=== PATIENT | female | born 1950 | race Caucasian/White ===

== ENCOUNTER → 2020-03-06 10:21 | Outpatient (REF) | payer MEDICARE, SELFPAY ==
--- NOTE | 2020-03-06 10:30 | CA_ITS ---
Transthoracic Echocardiogram Patient (Last, First, Middle): Nikky Lawrence, Gender: Female Date of : 1950 Age: 69 Procedure Date: 03/06/2020 Procedure Type: Transthoracic Echocardiogram Location: OP Height: 170.18 cm Weight: 80. kg BSA: 1.92 m2 Heart Rate: bpm BP: 126 / 60 mmHg Impregnator Electrolytic Capacitors: Referring MD: Martin Betancourt MD Flight Mechanic: Tereso Pacheco MD Symptoms: Z95.3 XENOGENIC HEART VALVE,Z95.828 VAS IMPLANTS GRAFTS Z95. Study Quality: Fair ECG Rhythm: Sinus Conclusions: - 1. Normal LV systolic function with pseudonormal filling pattern 2. Normally functioning bioprosthetic aortic valve with mean gradient of 10 mm Hg and mild aortic regurgitation 3. Normal RV systolic pressure 4. No pericardial effusion Findings Left Ventricle Normal left ventricular size and systolic function. There is mildly increased left ventricular wall thickness. The visually estimated ejection fraction is between 60-65%. Spectral Doppler is indicative of a pseudonormal filling pattern. E/E prime ratio is between 8 and 15 consistent with indeterminate filling pressures. Right Ventricle Normal right ventricular cavity size and systolic function. There is a pacemaker wire seen in the right ventricle. Atria The left atrium is likely dilated. There is no evidence of interatrial shunt. The right atrium is normal in size. A pacemaker wire is identified in the right atrium. Aortic Valve A bioprosthetic aortic valve is present. The prosthetic aortic valve appears to be functioning normally. The mean gradient is 10 mmHg. There is mild aortic valve regurgitation. Mitral Valve There is mild anterior and posterior mitral leaflet thickening. There is trace mitral valve regurgitation. There is no mitral valve stenosis. Pulmonic Valve The pulmonic valve was not well visualized. Tricuspid Valve Likely normal tricuspid valve structure and function. There is mild tricuspid valve regurgitation. The right ventricular systolic pressure is normal. The right ventricular systolic pressure is 20 mmHg. There is no evidence of pulmonary hypertension. Great Vessels All visible segments of the aorta are normal in size. The pulmonary artery was not well visualized. Venous The inferior vena cava is normal in size and collapses greater than 50% with inspiration. Pericardium/Pleural There is no evidence of pericardial effusion. Prior Study Comparison No significant change compared to prior study dated: 05/30/2019. Measurements 2D Linear Measurements IVSd: 1.33 0.6-0.9/0.6-1.0 cm LVIDd: 3.85 3.9-5.3/4.2-5.9 cm LVIDd Index: 2.01 2.4-3.2/2.2-3.1 cm/m2 LVIDs: 2.33 2.0-3.6 cm LVPWd: 1.37 0.7-1.1 cm Ao Root: 3.50 2.1-3.5 cm LA Diam: 4.00 2.7-3.8/3.0-4.0 cm LAIDs Index: 2.08 1.5-2.3 cm/m2 LV Mass: 232.90 67-162/88-224 g LV Mass Index: 121.30 43-95/49-115 g/m2 LVOT Diam: 2.00 3.0+(-)1.3 cm Mitral Valve MV VTI: 0.30 MV Pk Darren: 0.92 MV Mn Darren: 0.53 MV Pk Grad: 3.00 MV Mn Grad: 1.00 MV Pk E: 0.95 MV PK A: 0.63 MV Decel Time: 253.00 E/A: 1.50 E'Lateral: 9.28 E'Medial: 7.16 E/E' Med: 13.30 E/E' Lat: 10.20 PHT: 74.00 MVA PHT: 2.97 MVA Continuity: 2.53 Decel [place]: 3.75 Aortic Valve AoV Pk Darren: 2.19 AoV Mn Darren: 1.49 AoV VTI: 0.57 AoV Pk Grad: 19.00 Aov Mn Grad: 10.00 LAISHA Cont.VTI: 1.34 LVOT LVOT Pk Darren: 0.82 LVOT Mn Darren: 0.60 LVOT VTI: 0.24 LVOT Pk Grad: 3.00 LVOT Mn Grad: 2.00 LVOT Diam: 2.00 LVOT Area: 3.14 Diastolic Function MV Pk E: 0.95 MV Pk A: 0.63 E/A: 1.50 E'Medial: 7.16 E/E' Med: 13.30 E' Laterial: 9.28 E/E' Lat: 10.20 Tricuspid Valve TR Pk Darren: 2.04 TR Pk Grad: 17.00 RA Press: 3.00 RVSP: 20.00 Great Vessels Aorta Ao Root-2D: 3.50 2.0-3.7 cm Ao Asc: 2.90 2.1-3.4 cm Pulmonary Valve PV Pk Darren: 1.15 Peak PV Grad: 5.00 Updated in Other Vendor System with Status of Final Tereso Pacheco MD electronically signed on 03/06/2020 2:23:14 PM with status of Final
== END ==
LOC: HO.CARD 10:21
PROVIDERS: Visit Provider Internal Medicine
DX: Z95.3 Presence of xenogenic heart valve (principal); Z95.828 Presence of other vascular implants and grafts; Z95.1 Presence of aortocoronary bypass graft
CPT/HCPCS: 93306

== ENCOUNTER → 2020-03-13 11:11 | Outpatient (BNVA) | payer MEDICARE, SELFPAY | PROVIDERS: PCP Physician Assistant; Visit Provider Internal Medicine Pulmonary Disease | DX: J44.9 Chronic obstructive pulmonary disease, unspecified (principal); R06.00 Dyspnea, unspecified; Z79.899 Other long term (current) drug therapy; Z87.891 Personal history of nicotine dependence | CPT/HCPCS: 99212 ==

== ENCOUNTER → 2020-05-06 13:45 | Outpatient (BNVA) | payer MEDICARE, SELFPAY | PROVIDERS: PCP Physician Assistant; Visit Provider Internal Medicine | DX: Z45.018 Encounter for adjustment and management of other part of cardiac pacemaker (principal); I48.0 Paroxysmal atrial fibrillation; Z95.3 Presence of xenogenic heart valve; Z98.890 Other specified postprocedural states; Z86.79 Personal history of other diseases of the circulatory system; Z95.1 Presence of aortocoronary bypass graft | CPT/HCPCS: 99212 ==

== ENCOUNTER → 2020-09-19 10:24 | Outpatient (BNVA) | payer MEDICARE, SELFPAY | PROVIDERS: PCP Physician Assistant; Visit Provider Internal Medicine Pulmonary Disease | DX: J44.9 Chronic obstructive pulmonary disease, unspecified (principal); R06.00 Dyspnea, unspecified | CPT/HCPCS: 99212 ==

== ENCOUNTER → 2021-03-03 12:38 | Outpatient (BNVA) | payer MEDICARE, SELFPAY | PROVIDERS: PCP Physician Assistant; Referring Provider Physician Assistant; Visit Provider Internal Medicine | DX: Z45.018 Encounter for adjustment and management of other part of cardiac pacemaker (principal); I48.0 Paroxysmal atrial fibrillation; Z95.3 Presence of xenogenic heart valve; Z98.890 Other specified postprocedural states; Z86.79 Personal history of other diseases of the circulatory system; Z95.1 Presence of aortocoronary bypass graft | CPT/HCPCS: 93005; 99212 ==

== ENCOUNTER 2021-04-18 12:42 | Outpatient (REF) | payer MEDICARE, SELFPAY ==
--- NOTE | ~2021-04-18 | MM_ITS ---
EXAMINATION: BONE DENSITOMETRY CLINICAL INDICATION: Asymptomatic menopausal state. COMPARISON: Baseline BD dated 10/24/2009. TECHNIQUE: Using a [employer] DXA System (software version: 13.1) manufactured by [employer], dual-energy x-ray absorptiometry was performed of the lumbar spine and left hip. The images are of good technical quality. Summary results are attached. FINDINGS: AP SPINE L1-L4: Current: BMD 1.034 g/cm2, Z-score 0.1, T-score -1.2, osteopenia, 2.4% decrease from baseline (<5% change is not significant). Baseline: BMD 1.059 g/cm2. LEFT FEMUR, NECK: Current: BMD 0.718 g/cm2, Z-score -0.8, T-score -2.3, osteopenia. Baseline: BMD 0.816 g/cm2. LEFT FEMUR, TOTAL: Current: BMD 0.772 g/cm2, Z-score -0.6, T-score -1.9, osteopenia, 5.6% decrease from baseline (<5% change is not significant). Baseline: BMD 0.818 g/cm2. IDENTIFIED RISK FACTORS: Menopause. HISTORY OF FRACTURE: None listed. MEDICATIONS: Calcium supplements or multivitamin, vitamin D. MM/XR DEXA axial skeleton IMPRESSION: 1. DIAGNOSIS: Osteopenia based on the lowest T-score value of -2.3 in the femoral neck applying World Health Organization criteria. 2. 10-YEAR FRACTURE RISK PREDICTION, FRAX: Major osteoporotic fracture (clinical spine, forearm, hip or shoulder) 14.4%. Hip fracture 3.6%. 3. Treatment Recommendations: NOF guidelines recommend consideration for treatment in postmenopausal women and men age 50 and older presenting with the following: -A hip or vertebral (clinical or morphometric) fracture. -T-score less than or equal to -2.5 at the femoral neck or spine after appropriate evaluation to exclude secondary causes. -Low bone mass at the hip or spine and a 10-year fracture probability by FRAX of greater than or equal to 3% for hip fracture or greater than or equal to 20% for major osteoporotic fracture based on the [place] adapted WHO algorithm. 4. Other Recommendations: All treatment decisions require clinical judgment and consideration of individual patient factors, including patient preferences, comorbidities, previous drug use, risk factors not captured in the FRAX model (e.g. frailty, falls, vitamin D deficiency, increased bone turnover, interval significant decline in bone density) and possible under or overestimation of fracture risk by FRAX. Additional medical evaluation for secondary cause of low bone mineral density may be appropriate. FUTURE SCAN RECOMMENDATION: People with diagnosed cases of osteoporosis or at high risk for fracture should have regular bone mineral density tests. For patients eligible for Medicare, routine testing is allowed once every 2 years. The testing frequency can be increased to one year for patients who have rapidly progressing disease, those who are receiving or discontinuing medical therapy to restore bone mass, or have additional risk factors.
== END 2021-04-18 12:43 | disposition home or self-care (01) ==
LOC: HO.MAMMO 12:42
PROVIDERS: PCP Physician Assistant; Visit Provider Physician Assistant
DX: Z13.820 Encounter for screening for osteoporosis (principal); M85.80 Other specified disorders of bone density and structure, unspecified site; Z78.0 Asymptomatic menopausal state; Z79.899 Other long term (current) drug therapy; J44.9 Chronic obstructive pulmonary disease, unspecified
CPT/HCPCS: 77080; 99212

== ENCOUNTER → 2021-10-06 10:37 | Outpatient (BNVA) | payer MEDICARE, SELFPAY | PROVIDERS: PCP Physician Assistant; Referring Provider Physician Assistant; Visit Provider Internal Medicine | DX: I51.81 Takotsubo syndrome (principal); I48.0 Paroxysmal atrial fibrillation; J44.9 Chronic obstructive pulmonary disease, unspecified; Z95.3 Presence of xenogenic heart valve; Z95.1 Presence of aortocoronary bypass graft; Z98.890 Other specified postprocedural states | CPT/HCPCS: 99212 ==

== ENCOUNTER → 2021-10-27 11:00 | Outpatient (BNVA) | payer MEDICARE, SELFPAY | PROVIDERS: PCP Physician Assistant; Visit Provider Internal Medicine Pulmonary Disease | DX: J44.9 Chronic obstructive pulmonary disease, unspecified (principal); Z79.899 Other long term (current) drug therapy | CPT/HCPCS: 99212 ==

== ENCOUNTER → 2021-11-24 10:12 | Outpatient (REF) | payer MEDICARE, SELFPAY ==
--- NOTE | 2021-11-24 10:14 | CA_ITS ---
Transthoracic Echocardiogram Patient (Last, First, Middle): Nikky Lawrence, Gender: Female Date of : 1950 Age: 71 Procedure Date: 11/24/2021 Procedure Type: Transthoracic Echocardiogram Location: OP Height: 170.18 cm Weight: 77.11 kg BSA: 1.89 m2 Heart Rate: bpm BP: 148 / 84 mmHg Telephoto Installer: JAMISON Referring MD: Martin Betancourt MD Symptoms: I51.81 - Takotsubo syndrome Study Quality: Adequate ECG Rhythm: Sinus Conclusions: - The left ventricular systolic function is normal. The calculated ejection fraction is 67% by biplane method. - A bioprosthetic aortic valve is present. The prosthetic aortic valve appears to be functioning normally. - There is moderate mitral annular calcification. Findings Left Ventricle Normal left ventricular cavity size. There is moderately increased left ventricular wall thickness. The left ventricular systolic function is normal. The calculated ejection fraction is 67% by biplane method. There is no evidence of regional wall motion abnormalities. E/E prime ratio is >15, consistent with elevated filling pressures. Evidence suggests grade II (moderate) diastolic dysfunction. Right Ventricle Normal right ventricular cavity size and systolic function. Atria The left atrium is normal in size. The right atrium is normal in size. A pacemaker wire is identified in the right atrium. Aortic Valve A bioprosthetic aortic valve is present. The prosthetic aortic valve appears to be functioning normally. The mean gradient is 11 mmHg. Trace to mild regurgitation. Suspect valvular. Acceleration time 59ms. Mitral Valve There is moderate mitral annular calcification. There is trace mitral valve regurgitation. There is no mitral valve stenosis. Pulmonic Valve The pulmonic valve is likely normal. Tricuspid Valve Normal tricuspid valve structure. There is mild tricuspid valve regurgitation. There is no evidence of pulmonary hypertension. Great Vessels The aorta was not well visualized. Venous The inferior vena cava is normal in size and collapses greater than 50% with inspiration. Pericardium/Pleural There is no evidence of pericardial effusion. Prior Study Comparison No significant change compared to prior study dated: 03/06/2020. Measurements 2D Linear Measurements IVSd: 1.44 0.6-0.9/0.6-1.0 cm LVIDd: 3.88 3.9-5.3/4.2-5.9 cm LVIDd Index: 2.05 2.4-3.2/2.2-3.1 cm/m2 LVIDs: 2.30 2.0-3.6 cm LVPWd: 1.29 0.7-1.1 cm LA Diam: 3.40 2.7-3.8/3.0-4.0 cm LAIDs Index: 1.80 1.5-2.3 cm/m2 LV Mass: 239.61 67-162/88-224 g LV Mass Index: 126.78 43-95/49-115 g/m2 LVOT Diam: 2.00 3.0+(-)1.3 cm 2D Systolic Function EF 4C: 67.50 >55% EF 2C: 66.10 >55% EF BiP: 67.30 >55% Mitral Valve MV Pk E: 1.06 MV PK A: 0.68 MV Decel Time: 169.00 E/A: 1.60 E'Lateral: 8.48 E'Medial: 6.08 E/E' Med: 17.40 E/E' Lat: 12.50 PHT: 50.00 MVA PHT: 4.40 Decel [place]: 6.26 Aortic Valve AoV Pk Darren: 2.30 AoV Mn Darren: 1.54 AoV VTI: 0.59 AoV Pk Grad: 21.00 Aov Mn Grad: 11.00 LAISHA Cont.VTI: 1.63 LVOT LVOT Pk Darren: 1.16 LVOT Mn Darren: 0.72 LVOT VTI: 0.30 LVOT Pk Grad: 5.00 LVOT Mn Grad: 3.00 LVOT Diam: 2.00 LVOT Area: 3.14 Diastolic Function MV Pk E: 1.06 MV Pk A: 0.68 E/A: 1.60 E'Medial: 6.08 E/E' Med: 17.40 E' Laterial: 8.48 E/E' Lat: 12.50 Right Ventricle TAPSE (mm): 21.60 TVS' Darren: 8.40 Tricuspid Valve TR Pk Darren: 2.61 TR Pk Grad: 27.00 RA Press: 3.00 RVSP: 30.00 Great Vessels Aorta Ao Asc: 2.50 2.1-3.4 cm Updated in Other Vendor System with Status of Final Martin Betancourt MD electronically signed on 11/24/2021 1:04:22 PM with status of Final
== END ==
LOC: HO.CARD 10:12
PROVIDERS: Visit Provider Internal Medicine
DX: I51.81 Takotsubo syndrome (principal)
CPT/HCPCS: 93306

== ENCOUNTER → 2022-01-05 13:27 | Outpatient (BNVA) | payer MEDICARE, SELFPAY | PROVIDERS: PCP Physician Assistant; Referring Provider Physician Assistant; Visit Provider Internal Medicine | DX: Z45.018 Encounter for adjustment and management of other part of cardiac pacemaker (principal); I51.81 Takotsubo syndrome; I48.0 Paroxysmal atrial fibrillation; Z95.3 Presence of xenogenic heart valve; Z95.1 Presence of aortocoronary bypass graft; Z98.890 Other specified postprocedural states; Z86.79 Personal history of other diseases of the circulatory system | CPT/HCPCS: 93005; 99212 ==

== ENCOUNTER → 2022-05-05 10:22 | Outpatient (BNVA) | payer MEDICARE, SELFPAY | PROVIDERS: PCP Physician Assistant; Visit Provider Internal Medicine Pulmonary Disease | DX: J44.9 Chronic obstructive pulmonary disease, unspecified (principal) | CPT/HCPCS: 99212 ==

== ENCOUNTER → 2022-09-22 23:59 | Outpatient (BNV) | payer MEDICARE, SELFPAY ==
--- NOTE | 2022-09-27 10:44 | MHC.OFFVIS ---
Intake Intake Visit Reasons: Remote device check-Biotronik Allergies No Known Allergies [No Known Allergies*] Allergy (Verified 06/01/22 12:13) PFSH Medical History COPD (chronic obstructive pulmonary disease) PAF (paroxysmal atrial fibrillation) Surgical History History of cataract extraction History of heart surgery Status post aortic valve replacement with bioprosthetic valve Status post aorto-coronary artery bypass graft Status post ascending aortic aneurysm repair Family History Father Myocardial infarction Mother No problems noted. 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 Overall normal device function. [id number] Cardiac Device Interrogation, pacemaker Procedure code (CPT) selection complete Assessment & Plan Assessment & Plan (1) PAF (paroxysmal atrial fibrillation): Code(s): I48.0 - Paroxysmal atrial fibrillation Coding Level of Care Code Procedure Only Diagnoses PAF (paroxysmal atrial fibrillation) I48.0 CPT Codes Cardiac Device Check - Cardiac Device 12: [id number] Cardiac Device Interrogation, pacemaker ([id number])
== END ==
PROVIDERS: PCP Physician Assistant; Visit Provider Internal Medicine
DX: I48.0 Paroxysmal atrial fibrillation (principal); Z95.0 Presence of cardiac pacemaker
CPT/HCPCS: 93294

== ENCOUNTER 2022-11-10 11:25 | Outpatient (AMB) | payer MEDICARE, SELFPAY ==
[2022-11-10 11:32] VITALS: BP 146/94; PULSE 67; O2SAT 97; BMI 27.3
--- NOTE | 2022-11-10 11:32 | A.OFFVIS_ITS ---
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 Patient denies any recent exacerbations. She continues to use Trelegy and albuterol MDI with good control of her symptoms. [facility] Medical History COPD (chronic obstructive pulmonary disease) PAF (paroxysmal atrial fibrillation) Surgical History History of cataract extraction History of heart surgery Status post aortic valve replacement with bioprosthetic valve Status post aorto-coronary artery bypass graft Status post ascending aortic aneurysm repair Family History Father Myocardial infarction Mother No problems noted. Brother CAD (coronary artery disease) S/P CABG x 4 Social History Household Members: None Housing: House Alcohol intake: never Patient Tobacco Use Status: Former Tobacco user Years Smoked: 40 e-Cigarette/Vaping Use: Never Used Second Hand Smoke Exposure: No service: No Current occupational status: retired Cognitive needs: No Hearing needs: No Vision needs: Yes (glasses) Review of Systems Const Denies daytime sleepiness, Denies excessive sweating, Denies fatigue, Denies fever(s), Denies lethargy, Denies malaise, Denies night sweats, Denies snoring and Denies weight loss Eyes Denies blurry vision and Denies itchy eyes ENT Denies nasal congestion, Denies post nasal drip, Denies sinus pain, Denies sinus pressure and Denies other ( Thrush) Card Denies chest pain, Denies pedal edema, Denies dyspnea, Denies orthopnea and Denies paroxysmal nocturnal dyspnea Resp Denies cough, Denies hemoptysis, Denies excessive phlegm production, Denies dyspnea, Denies snoring and Denies wheezing GI Denies abdominal pain and Denies heartburn Musc Denies myalgias, Denies arthralgias and Denies joint swelling Skin/Breast Denies rash Neuro Denies memory loss and Denies seizure-like activity Psych Denies abnormal sleep pattern, Denies anxiety and Denies memory loss Endo Denies excessive sweating, Denies fatigue and Denies heat intolerance Schuyler/Lymph Denies easy bruising Aller/Immun Denies itchy eyes, Denies seasonal rhinorrhea and Denies wheezing Physical Exam Vital Signs: Last Vital Signs Pulse 67 11/10/22 11:32 BP 146/94 H 11/10/22 11:32 Pulse Ox 97 11/10/22 11:32 Oxygen Delivery Method Room Air 11/10/22 11:32 BMI result Body Mass Index 27.3 Const General: no acute distress and alert Nutritional Appearance: not obese Orientation/consciousness: Other orientation findings ( oriented) HEENT Head: Yes atraumatic Eyes General: appearance normal, both eyes and all related structures Sclerae: sclerae normal EOM: EOMs intact bilaterally Neck Neck: Yes supple Lymphatic: no lymphadenopathy noted Resp Effort & Inspection: normal respiratory effort and no use of accessory muscles Auscultation: clear to auscultation bilaterally Cardio Rate: regular rate Rhythm: regular rhythm Heart sounds: no gallops, no murmurs and no rubs Skin General skin exam: other ( warm) Extrem General: No clubbing, No cyanosis and No edema Office Procedures Nebulizer Treatment Nebulizer Treatment [id number] RX initial, or Nebulizer Subsequent Treatment Office Meds ipratropium 0.5 mg-albuterol 3 mg (2.5 mg base)/3 mL nebulization soln Performing Provider: Gomez Pizano MD Performing Location: [facility] [place] [facility] Administered by: Kelly Dinero LPN on 11/10/22 12:04 Dose Route Admin Location Dispensed Lot Number Expiration Date NDC [employer] 3 mL inhalation 3 mL [id number] 02/08/24 8743-7851-22 [employer]PH[employer] KIKE Assessment & Plan Assessment & Plan (1) Moderate COPD (chronic obstructive pulmonary disease): Code(s): J44.9 - Chronic obstructive pulmonary disease, unspecified Plan: Well controlled on current regimen of Trelegy and albuterol MDI. Continue current regimen. Will obtain full PFT. (2) Screening for lung cancer: Code(s): Z12.2 - Encounter for screening for malignant neoplasm of respiratory organs Plan: Will proceed with lung cancer screening. Orders: Orders AMB Nebulizer Treatment Today J44.9 - Chronic obstructive pulmonary disease, unspecified CT lung screening Today Z12.2 - Encounter for screening for malignant neoplasm of respiratory organs Coding Level of Care Code Est Pt Level 4 (01492) Diagnoses Moderate COPD (chronic obstructive pulmonary disease) J44.9 Screening for lung cancer Z12.2 CPT Codes Nebulizer Treatment - Nebulizer Treatment, initial or subsequent: 74162- Nebulizer/MDI RX initial, or Nebulizer Subsequent Treatment ([id number])
== END 2022-11-10 15:29 | disposition home or self-care (01) ==
PROVIDERS: PCP Physician Assistant; Visit Provider Internal Medicine Pulmonary Disease
DX: J44.9 Chronic obstructive pulmonary disease, unspecified (principal); Z12.2 Encounter for screening for malignant neoplasm of respiratory organs
CPT/HCPCS: 99214

== ENCOUNTER → 2022-11-10 11:25 | Outpatient (BNVA) | payer MEDICARE, SELFPAY | PROVIDERS: Visit Provider Internal Medicine Pulmonary Disease | DX: J44.9 Chronic obstructive pulmonary disease, unspecified (principal); Z79.899 Other long term (current) drug therapy | CPT/HCPCS: 94640; 99212 ==

== ENCOUNTER 2022-12-21 10:28 | Outpatient (REF) | payer MEDICARE, SELFPAY ==
--- NOTE | ~2022-12-21 | CT_ITS ---
EXAMINATION: CT CHEST SCREENING CLINICAL INFORMATION: Former smoker with 40 pack-year history, quit 8 years ago. COMPARISON: Previous CTs, most recent, 07/12/2019. TECHNIQUE: Multidetector volumetric CT imaging of the chest is performed without contrast using low dose technique. Additional 2D coronal and sagittal reformatted images and axial 3D maximum intensity projection (MIP) images are generated on the CT workstation. This CT examination was performed using dose optimization techniques as appropriate, variously including the following: *Automated exposure control *Adjustment of mA and/or kV according to patient size (this includes techniques or standardized protocols for targeted exams where dose is matched to indication/reason for exam; i.e. 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 Unchanged mild elevation right hemidiaphragm. AIRWAYS AND LUNGS: Trachea and bronchi are patent centrilobular emphysema. Scattered atelectasis. 4 mm subpleural left upper lobe nodule, 6:121. Multiple small bilateral pulmonary nodules sited on previous study have resolved or are less conspicuous. Persistent nodules as follows: RLL: 2 mm, 6:186, previously measured 4 mm. MARY: No change 4 mm subpleural, 6:121. MEDIASTINUM: Mildly heterogeneous nonenlarged thyroid with left calcification. Nonenlarged heart. No pericardial effusion. Pacer and aortic valve replacement. Nonaneurysmal aorta with atherosclerotic calcifications. Nonenlarged pulmonary arteries. CORONARY ARTERY CALCIFICATION: Moderate to moderately severe. PLEURA: There is no pleural effusion. No pleural mass or thickening. AXILLA: No lymphadenopathy. UPPER ABDOMEN: Pancreatic calcifications. OSSEOUS STRUCTURES: Degenerative changes. No suspicious osseous lesions. Median sternotomy wires. CT/CT lung screening IMPRESSION: Interval resolution of previous small pulmonary nodules and stable pulmonary nodules, none larger than 4 mm. ASSESSMENT: Lung-RADS category 2: Benign RECOMMENDATION: Routine annual low-dose CT screening in 12 months.
--- NOTE | 2022-12-21 10:30 | CA_ITS ---
Transthoracic Echocardiogram Patient (Last, First, Middle): Nikky Lawrence, Gender: Female Date of : 1950 Age: 72 Procedure Date: 12/21/2022 Procedure Type: Transthoracic Echocardiogram Location: OP Height: 167.64 cm Weight: 78.02 kg BSA: 1.88 m2 Heart Rate: bpm BP: 115 / 75 mmHg Barman: JAMISON/KAREN Referring MD: Martin Betancourt MD Symptoms: Z95.3 - Presence of xenogenic heart valve Study Quality: Fair ECG Rhythm: Sinus Conclusions: - The left ventricular systolic function is normal. The calculated ejection fraction is 64% by biplane method. - A bioprosthetic aortic valve is present. The prosthetic aortic valve appears to be functioning normally. Findings Left Ventricle Normal left ventricular cavity size. The left ventricular systolic function is normal. The calculated ejection fraction is 64% by biplane method. There is no evidence of regional wall motion abnormalities. Diastolic function is normal for age. There is moderate septal and moderate basal asymmetric hypertrophy. LV peak GLS -18.2%. Right Ventricle Normal right ventricular cavity size and systolic function. Atria Both atria are normal in size. Aortic Valve A bioprosthetic aortic valve is present. The prosthetic aortic valve appears to be functioning normally. The mean gradient is 12 mmHg. There is trace (trivial) aortic valve regurgitation. Trace to mild likely valvular regurgitation. Mitral Valve There is mild mitral annular calcification. There is trace mitral valve regurgitation. There is no mitral valve stenosis. Pulmonic Valve The pulmonic valve is likely normal. Tricuspid Valve Normal tricuspid valve structure. There is trace tricuspid valve regurgitation. There is no evidence of pulmonary hypertension. Great Vessels The asc aorta is normal in size. Venous The inferior vena cava is normal in size and collapses greater than 50% with inspiration. Pericardium/Pleural There is no evidence of pericardial effusion. Prior Study Comparison No significant change compared to prior study dated: 11/24/2021. Measurements 2D Linear Measurements IVSd: 1.34 0.6-0.9/0.6-1.0 cm LVIDd: 4.53 3.9-5.3/4.2-5.9 cm LVIDd Index: 2.41 2.4-3.2/2.2-3.1 cm/m2 LVIDs: 2.87 2.0-3.6 cm LVPWd: 0.91 0.7-1.1 cm LA Diam: 3.80 2.7-3.8/3.0-4.0 cm LAIDs Index: 2.02 1.5-2.3 cm/m2 LV Mass: 227.74 67-162/88-224 g LV Mass Index: 121.14 43-95/49-115 g/m2 LVOT Diam: 2.00 3.0+(-)1.3 cm 2D Systolic Function EF 4C: 63.60 >55% EF 2C: 65.00 >55% EF BiP: 64.10 >55% Mitral Valve MV VTI: 0.44 MV Pk Darren: 1.27 MV Mn Darren: 0.78 MV Pk Grad: 6.00 MV Mn Grad: 3.00 MV Pk E: 1.03 MV PK A: 0.88 MV Decel Time: 213.00 E/A: 1.20 E'Lateral: 10.00 E'Medial: 8.49 E/E' Med: 12.10 E/E' Lat: 10.30 PHT: 62.00 MVA PHT: 3.55 MVA Continuity: 1.52 Decel [place]: 4.83 Aortic Valve AoV Pk Darren: 2.36 AoV Mn Darren: 1.62 AoV VTI: 0.61 AoV Pk Grad: 22.00 Aov Mn Grad: 12.00 LAISHA Cont.VTI: 1.09 LVOT LVOT Pk Darren: 0.77 LVOT Mn Darren: 0.56 LVOT VTI: 0.21 LVOT Pk Grad: 2.00 LVOT Mn Grad: 1.00 LVOT Diam: 2.00 LVOT Area: 3.14 Diastolic Function MV Pk E: 1.03 MV Pk A: 0.88 E/A: 1.20 E'Medial: 8.49 E/E' Med: 12.10 E' Laterial: 10.00 E/E' Lat: 10.30 Right Ventricle TAPSE (mm): 20.40 TVS' Darren: 10.60 Tricuspid Valve TR Pk Darren: 1.97 TR Pk Grad: 16.00 RA Press: 3.00 RVSP: 19.00 Great Vessels Aorta Sinus of Valsalva: 3.34 2.0-3.5 cm Ao Asc: 3.20 2.1-3.4 cm Updated in Other Vendor System with Status of Final Martin Betancourt MD electronically signed on 12/22/2022 11:56:04 AM with status of Final
== END 2022-12-21 10:29 | disposition home or self-care (01) ==
LOC: HO.CT 10:28
PROVIDERS: PCP Physician Assistant; Referring Provider Internal Medicine Pulmonary Disease; Visit Provider Internal Medicine
DX: Z12.2 Encounter for screening for malignant neoplasm of respiratory organs (principal); Z87.891 Personal history of nicotine dependence; Z95.3 Presence of xenogenic heart valve
CPT/HCPCS: 71271; 93306; 93356

== ENCOUNTER → 2022-12-21 10:30 | Outpatient (BNV) | payer MEDICARE, SELFPAY | PROVIDERS: PCP Physician Assistant; Referring Provider Internal Medicine Pulmonary Disease; Visit Provider Internal Medicine | DX: I34.81 Nonrheumatic mitral (valve) annulus calcification (principal); I35.1 Nonrheumatic aortic (valve) insufficiency | CPT/HCPCS: 93306 ==

== ENCOUNTER → 2022-12-24 23:59 | Outpatient (BNV) | payer MEDICARE, SELFPAY ==
--- NOTE | 2022-12-27 13:43 | MHC.OFFVIS ---
Intake Intake Visit Reasons: Remote Device Check- Biotronik Allergies No Known Allergies [No Known Allergies*] Allergy (Verified 11/10/22 11:36) PFSH Medical History COPD (chronic obstructive pulmonary disease) PAF (paroxysmal atrial fibrillation) Surgical History History of cataract extraction History of heart surgery Status post aortic valve replacement with bioprosthetic valve Status post aorto-coronary artery bypass graft Status post ascending aortic aneurysm repair Family History Father Myocardial infarction Mother No problems noted. Brother CAD (coronary artery disease) S/P CABG x 4 Social History Household Members: None Housing: House Alcohol intake: never Patient Tobacco Use Status: Former Tobacco user Years Smoked: 40 e-Cigarette/Vaping Use: Never Used Second Hand Smoke Exposure: No service: No Current occupational status: retired Cognitive needs: No Hearing needs: No Vision needs: Yes (glasses) Office Procedures Cardiac Device Check Cardiac Device Check Details: Date of service- 12/24/2022 ; Battery life 65%; normal lead parameters; AP 13%; LICENSE DISTRIBUTOR 0%; no significant arrhythmias. Overall normal device function. [id number] Cardiac Device Interrogation, pacemaker Procedure code (CPT) selection complete Assessment & Plan Assessment & Plan (1) PAF (paroxysmal atrial fibrillation): Code(s): I48.0 - Paroxysmal atrial fibrillation Coding Level of Care Code Procedure Only Diagnoses PAF (paroxysmal atrial fibrillation) I48.0 CPT Codes Cardiac Device Check - Cardiac Device 12: [id number] Cardiac Device Interrogation, pacemaker ([id number])
== END ==
PROVIDERS: PCP Physician Assistant; Visit Provider Internal Medicine
DX: I48.0 Paroxysmal atrial fibrillation (principal); Z95.0 Presence of cardiac pacemaker
CPT/HCPCS: 93294

== ENCOUNTER 2023-01-04 12:38 | Outpatient (AMB) | payer MEDICARE, SELFPAY ==
--- NOTE | 2023-01-04 12:56 | A.OFFVIS_ITS ---
Intake Vital Signs 01/04/23 12:57 Height 5 ft 7 in Weight 171 lb 15.369 oz BMI 26.9 BP 144/72 H Blood Pressure Location Lt brachial Position Sitting Pulse 62 Intake Visit Reasons: 1 year follow up w/ Biotronik device check Intake Note: 1 year follow up w/ EKG Telephoto Installer Required: No Accompanied by: Self / Same As Patient Allergies No Known Allergies [No Known Allergies*] Allergy (Verified 01/04/23 13:00) Medication List - Last Reconciled 01/04/23 by Martin Betancourt MD albuterol sulfate 90 mcg/actuation 2 puffs inhalation Q4-6H PRN 30 days apixaban (Eliquis) 5 mg PO BID ezetimibe (Zetia) 10 mg PO DAILY 90 days lisinopril 5 mg PO DAILY metoprolol tartrate 25 mg PO BID 90 days rosuvastatin 40 mg PO DAILY 90 days Trelegy Ellipta 100-62.5-25 mcg (rhndieuxvqb-[id number]) 1 inh inhalation DAILY NS HPI HPI Comments History of Present Illness Details Nikky returns for follow-up regarding her cardiac issues. To recall, she had severe aortic stenosis, coronary disease as well as an ascending aortic aneurysm. She underwent surgical repair of the same. 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 Cardiac catheterization relatively unchanged compared to before. It seems that there were issues with her house being foreclosed and hence she was under lot of mental stress, which might have been the precipitating factor. These days, no new issues. No symptoms from cardiac standpoint. She believes she is forgetting things. [facility] Medical History COPD (chronic obstructive pulmonary disease) PAF (paroxysmal atrial fibrillation) Surgical History History of cataract extraction Status post aorto-coronary artery bypass graft Status post ascending aortic aneurysm repair Status post aortic valve replacement with bioprosthetic valve History of heart surgery Family History Father Myocardial infarction Mother No problems noted. Brother CAD (coronary artery disease) S/P CABG x 4 Household Members: None Housing: House Alcohol intake: never Patient Tobacco Use Status: Former Tobacco user Years Smoked: 40 e-Cigarette/Vaping Use: Never Used Second Hand Smoke Exposure: No service: No Current occupational status: retired Cognitive needs: No Hearing needs: No Vision needs: Yes (glasses) Review of Systems Const Denies weakness ENT Denies dizziness Card Denies chest pain, Denies chest pain with activity, Denies syncope, Denies rapid heart rate, Denies pedal edema, Denies edema, Denies leg edema, Denies lightheadedness, Denies palpitations, Denies dyspnea, Denies dyspnea on exertion and Denies orthopnea Resp Denies cough, Denies dyspnea and Denies dyspnea on exertion GI Denies hematochezia and Denies change in stool character Musc Denies abnormal gait, Denies muscle cramps, Denies muscle weakness, Denies numbness, Denies radiating pain into limb and Denies tingling Neuro Denies abnormal gait, Denies dizziness, Denies syncope, Denies numbness, Denies tingling and Denies weakness Endo Denies palpitations Physical Exam Vital Signs: Last Vital Signs Pulse 62 01/04/23 12:57 BP 144/72 H 01/04/23 12:57 BMI result Body Mass Index 26.9 Office Procedures EKG Details: EKG with sinus rhythm at 62/Min; leftward axis; no significant ST-T changes and otherwise unremarkable[place]. [id number], Complete Assessment & Plan Assessment & Plan (1) Stress-induced cardiomyopathy: Code(s): I51.81 - Takotsubo syndrome Plan: Follow-up echocardiogram with normalized LVEF. Cardiac catheterization with unchanged findings compared to 2018. Clinically, she has got no symptoms. (2) PAF (paroxysmal atrial fibrillation): Code(s): I48.0 - Paroxysmal atrial fibrillation Plan: She had 7 hours of atrial fibrillation based on remote monitoring, detected in past. Continue Eliquis. Continue metoprolol. No recent issues. (3) Status post aortic valve replacement with bioprosthetic valve: Comment: Aortic valve replaced in 2018 Code(s): Z95.3 - Presence of xenogenic heart valve Plan: Normal function based on the recent echocardiogram. (4) Status post ascending aortic aneurysm repair: Code(s): Z98.890 - Other specified postprocedural states; Z86.79 - Personal history of other diseases of the circulatory system Plan: #26 Hemashield graft. Per cardiac surgery note, ascending aortic diameter 3.[address] planned in 2 years. FU with cardiac surgery. (5) Status post aorto-coronary artery bypass graft: Code(s): Z95.1 - Presence of aortocoronary bypass graft Plan: Status post 1 vessel bypass to RCA acute marginal branch. In the most recent catheterization, findings unchanged from before. From [facility]-LDL 86 mg/dL. Triglycerides 158 mg/dL. History of 92 mg/dL. Continue statins, zetia. Repeat labs pending. (6) HTN (hypertension): Code(s): I10 - Essential (primary) hypertension Qualifiers: Hypertension type: primary hypertension Qualified Code(s): I10 - Essential (primary) hypertension Plan: Slightly high blood pressure. Advised to do home readings. Coding Level of Care Code Est Pt Level 4 (70359) Diagnoses Stress-induced cardiomyopathy I51.81 PAF (paroxysmal atrial fibrillation) I48.0 Status post aortic valve replacement with bioprosthetic valve Z95.3 Status post ascending aortic aneurysm repair Z98.890; Z86.79 Status post aorto-coronary artery bypass graft Z95.1 Primary hypertension I10 Hypertension type: primary hypertension CPT Codes EKG - CPT: 66764-[id number], Complete ([id number])
[2023-01-04 12:57] VITALS: BP 144/72; PULSE 62; BMI 26.9
== END 2023-01-04 13:25 | disposition home or self-care (01) ==
PROVIDERS: Visit Provider Internal Medicine
DX: I51.81 Takotsubo syndrome (principal); I48.0 Paroxysmal atrial fibrillation; Z95.3 Presence of xenogenic heart valve; Z98.890 Other specified postprocedural states; Z86.79 Personal history of other diseases of the circulatory system; Z95.1 Presence of aortocoronary bypass graft; I10 Essential (primary) hypertension
CPT/HCPCS: 93010; 99214

== ENCOUNTER → 2023-01-04 12:38 | Outpatient (BNVA) | payer MEDICARE, SELFPAY | PROVIDERS: Visit Provider Internal Medicine | DX: I51.81 Takotsubo syndrome (principal); I48.0 Paroxysmal atrial fibrillation; I10 Essential (primary) hypertension; Z95.3 Presence of xenogenic heart valve; Z98.890 Other specified postprocedural states; Z86.79 Personal history of other diseases of the circulatory system; Z95.1 Presence of aortocoronary bypass graft | CPT/HCPCS: 93005; 99212 ==

== ENCOUNTER 2023-01-14 09:03 | Outpatient (AMB) | payer MEDICARE, SELFPAY ==
[2023-01-14 09:14] VITALS: BP 152/64; BMI 26.8
--- NOTE | 2023-01-14 09:14 | A.OFFPC_ITS ---
Vital Signs 01/14/23 09:14 01/14/23 09:22 Height 5 ft 7 in Weight 171 lb 2 oz BMI 26.8 BP 152/64 H 160/72 H Blood Pressure Location Lt brachial Rt brachial Position Sitting Sitting Pulse 70 Pulse Source Pulse Oximeter Palpation Oxygen Delivery Method Room Air Intake Visit Reasons: f/u AFIB/ HTN/ HLD Program Coordinator Executive Education Required: No Accompanied by: Self / Same As Patient Allergies No Known Allergies [No Known Allergies*] Allergy (Verified 01/14/23 09:34) Medication List - Last Reconciled 01/14/23 by Raulito Harden PA-C albuterol sulfate 90 mcg/actuation 2 puffs inhalation Q4-6H PRN 30 days apixaban (Eliquis) 5 mg PO BID ezetimibe (Zetia) 10 mg PO DAILY 90 days lisinopril 5 mg PO DAILY metoprolol tartrate 25 mg PO BID 90 days rosuvastatin 40 mg PO DAILY 90 days Tobacco use date assessed: 06/01/22 HPI f/u AFIB/ HTN/ HLD HPI Details Patient is a 72-year-old female here today for a? a f/u visit. Patient? has a past medical history significant for hypertension, hyperlipidemia, aortic valve replacement,AFIB, COPD, 6 mm pulmonary lung nodule, Has for gotten to get labs done Concern--> reports over the last 6-8 months having worsening memory issues. She reports she is unable to find words or remember which she was last doing. This is causing her some frustration her life. She has no family history of dementia or Alzheimer's. PLAN: Will send for MRI brain to evaluate for any concerning etiology. ?Status post aortic valve replacement? : Is followed by insole and outsole splitter. currently denies any chest dyscomfort, SOB.?Most recent echocardiograms have been stable without advancing structural cardiac disease.? EF acceptable She was found to have paroxysmal AFIB now on AC ( Apixaban ).? No overt signs of bleeding REcently underwent a transthoracic echo-->- A bioprosthetic aortic valve is present.? The prosthetic aortic valve appears to be functioning normally.? There is moderate mitral annular calcification.?? .. AFib: Continues on anticoagulation without any overt signs of bleeding. Continues on metoprolol with good control of her rate, also has pacemaker placed and gets a checked regularly by her insole and outsole splitter. .. Hypertension: Blood pressure readings elevated today in office. Was also elevated at her recent cardiology visit. She otherwise denies any chest discomfort, headaches, vision issues. PLAN: Will increase her lisinopril dose mg. .. Congestive heart failure: Did have a acute episode of stress-induced cardiomyopathy causing pulmonary edema and was seen at [facility] back in 2021. Has since been stable and euvolemic without any further shortness of breath. . ?.. ?COPD/ pulmonary nodule: Patient? is followed by a ice seller. Report breathing has been stable.?? PFSH Medical History COPD (chronic obstructive pulmonary disease) PAF (paroxysmal atrial fibrillation) Surgical History History of cataract extraction Status post aorto-coronary artery bypass graft Status post ascending aortic aneurysm repair Status post aortic valve replacement with bioprosthetic valve History of heart surgery Family History Father Myocardial infarction Mother No problems noted. Brother CAD (coronary artery disease) S/P CABG x 4 Social History Household Members: None Housing: House Alcohol intake: never Patient Tobacco Use Status: Former Tobacco user Years Smoked: 40 e-Cigarette/Vaping Use: Never Used Second Hand Smoke Exposure: No service: No Current occupational status: retired Cognitive needs: No Hearing needs: No Vision needs: Yes (glasses) Questionnaire Thrive Questionnaire Date Thrive assessed: 06/01/22 ROLAN-7 AMB Questionnaire ROLAN-7 Date ROLAN - 7 assessed: 06/01/22 Source: Developed by Drs. Jorge Patel, Radha Morales, Steve Frias and colleagues, with an educational erasmo from [employer]. Review of Systems Const Denies headache(s) Eyes Denies loss of vision ENT Denies vertigo, Denies dizziness, Denies headache(s) and Denies sore throat Card Denies chest pain, Denies leg edema and Denies lightheadedness Resp Denies cough, Denies hemoptysis and Denies wheezing GI Denies abdominal pain, Denies melena, Denies constipation, Denies diarrhea and Denies vomiting Denies urinary frequency, Denies dysuria and Denies urinary urgency Musc Denies arthralgias, Denies joint swelling, Denies numbness and Denies tingling Neuro Denies Abnormal speech present, Denies behavioral changes, Denies vertigo, Denies dizziness, Denies headache(s), Denies loss of vision, Reports memory loss, Denies numbness and Denies tingling Psych Denies anxiety, Denies behavioral changes, Denies depression, Reports memory loss and Denies panic attacks Schuyler/Lymph Denies easy bleeding and Denies easy bruising Aller/Immun Denies wheezing Physical exam (Primary Care) Vital Signs: Last Vital Signs Pulse 70 01/14/23 09:22 BP 160/72 H 01/14/23 09:22 Oxygen Delivery Method Room Air 01/14/23 09:14 BMI result Body Mass Index 26.8 Tobacco/Smoking Status: Tobacco use Status Tobacco use date assessed 06/01/22 01/14/23 09:14 Patient Tobacco Use Status Former Tobacco user 01/14/23 09:14 e-Cigarette/Vaping Use Never Used 01/14/23 09:14 Thrive Assessment: Date of Thrive Assessment Date Thrive assessed 06/01/22 01/14/23 09:14 Const General: healthy appearing, no acute distress, alert and awake Nutritional Appearance: well nourished Orientation/consciousness: oriented to person, oriented to place and oriented to time HENMT Ears: TM's normal bilaterally General nose exam: Normal nasal mucous membranes and turbinates present Eyes Conjunctivae: conjunctivae normal Sclerae: sclerae normal Pupils: Equal, round and reactive pupils present Neck Neck: Yes no lymphadenopathy and Yes no JVD Thyroid: Thyroid normal Carotids: no bruits Resp Effort & Inspection: normal respiratory effort and not tachypneic Auscultation: no crackles, no rales, no rhonchi and no wheezes Cardio Rate: regular rate Rhythm: regular rhythm Heart sounds: no murmurs and normal S1 and S2 GI Palpation (GI): Soft to palpation, nontender, no hepatomegaly and no splenomegaly Auscultation: normal bowel sounds Skin General skin exam: no rashes or lesions noted and dry skin Neuro General: oriented to person, oriented to place and oriented to time Cranial nerves: Yes Equal, round and reactive pupils present Speech: No Abnormal speech present Gait exam (Neuro): Normal gait present Motor exam (neuro): no tremor noted Extrem Right upper extremity: full ROM Left upper extremity: full ROM Right lower extremity: full ROM; no edema Left lower extremity: full ROM; no edema Psych Mental Status: mental status grossly normal Speech and movement: Normal speech and movement present Affect: normal affect Attitude: cooperative Thought process: Normal thought process present Assessment and Plan Assessment & Plan (1) HTN (hypertension): Code(s): I10 - Essential (primary) hypertension Qualifiers: Hypertension type: primary hypertension Qualified Code(s): I10 - Essential (primary) hypertension Plan: Patient's blood pressure elevated today in office. Will increase her lisinopril dose 10. Advised to start monitoring blood pressure at home with goal blood pressure be below 130/90. (2) Afib: Code(s): I48.91 - Unspecified atrial fibrillation Qualifiers: Atrial fibrillation type: paroxysmal Qualified Code(s): I48.0 - Paroxysmal atrial fibrillation Plan: Patient continues to follow cardiology, continues on anticoagulation without any overt signs of bleeding. Denies any recent episodes of heart palpitations or shortness of breath. (3) Moderate COPD (chronic obstructive pulmonary disease): Code(s): J44.9 - Chronic obstructive pulmonary disease, unspecified Plan: Patient previous smoker. She continues to follow pulmonology. She denies any recent episodes of COPD exacerbations. Continues on daily trilogy. Rarely has to use her albuterol inhaler. (4) Memory impairment: Code(s): R41.3 - Other amnesia Plan: Patient having concerning memory impairment over the last 6-8 months. She reports she has been forgetting which she is doing in a train of thought, people's names ect.. Will get MRI brain to evaluate for any concerning intracranial etiology Orders: Orders MR head/brain wo con Today R41.3 - Other amnesia Medications: New lisinopril 10 mg PO DAILY 90 days 90 tabs 1RF I10 - Essential (primary) hypertension Discontinued lisinopril Discontinued Reason: Doctor's Order 5 mg PO DAILY 90 tabs 1RF I10 - Essential (primary) hypertension Coding Level of Care Code Est Pt Level 4 (97299) Diagnoses Primary hypertension I10 Hypertension type: primary hypertension Paroxysmal atrial fibrillation I48.0 Atrial fibrillation type: paroxysmal Moderate COPD (chronic obstructive pulmonary disease) J44.9 Memory impairment R41.3
[2023-01-14 09:22] VITALS: BP 160/72; PULSE 70
== END 2023-01-14 10:04 | disposition home or self-care (01) ==
PROVIDERS: PCP Physician Assistant; Visit Provider Physician Assistant
DX: I10 Essential (primary) hypertension (principal); I48.0 Paroxysmal atrial fibrillation; J44.9 Chronic obstructive pulmonary disease, unspecified; R41.3 Other amnesia
CPT/HCPCS: 99214

== ENCOUNTER → 2023-03-30 23:59 | Outpatient (BNV) | payer MEDICARE, SELFPAY ==
--- NOTE | 2023-03-31 18:32 | A.OFFVIS_ITS ---
Intake Intake Visit Reasons: Remote Device Check- Biotronik Allergies No Known Allergies [No Known Allergies*] Allergy (Verified 01/14/23 09:34) PFSH Medical History COPD (chronic obstructive pulmonary disease) PAF (paroxysmal atrial fibrillation) Surgical History History of cataract extraction Status post aorto-coronary artery bypass graft Status post ascending aortic aneurysm repair Status post aortic valve replacement with bioprosthetic valve History of heart surgery Family History Father Myocardial infarction Mother No problems noted. Brother CAD (coronary artery disease) S/P CABG x 4 Social History Household Members: None Housing: House Alcohol intake: never Patient Tobacco Use Status: Former Tobacco user Years Smoked: 40 e-Cigarette/Vaping Use: Never Used Second Hand Smoke Exposure: No service: No Current occupational status: retired Cognitive needs: No Hearing needs: No Vision needs: Yes (glasses) Office Procedures Cardiac Device Check Cardiac Device Check Details: Date of service- 03/30/2023 ; Battery life 65%; normal lead parameters; AP 12%; SHIPYARD SUPERVISOR 0%; no significant arrhythmias. Overall normal device function. [id number] Cardiac Device Interrogation, pacemaker Procedure code (CPT) selection complete Assessment & Plan Assessment & Plan (1) Afib: Code(s): I48.91 - Unspecified atrial fibrillation Qualifiers: Atrial fibrillation type: paroxysmal Qualified Code(s): I48.0 - Paroxysmal atrial fibrillation Plan X Coding Level of Care Code Procedure Only Diagnoses Paroxysmal atrial fibrillation I48.0 Atrial fibrillation type: paroxysmal CPT Codes Cardiac Device Check - Cardiac Device 12: [id number] Cardiac Device Interrogation, pacemaker ([id number])
== END ==
PROVIDERS: PCP Physician Assistant; Visit Provider Internal Medicine
DX: I48.0 Paroxysmal atrial fibrillation (principal); Z95.0 Presence of cardiac pacemaker
CPT/HCPCS: 93294

== ENCOUNTER 2023-04-15 10:44 | Outpatient (AMB) | payer MEDICARE, SELFPAY ==
--- NOTE | 2023-04-15 10:55 | MHC.PC.OV ---
Vital Signs 04/15/23 10:56 04/15/23 11:23 Height 5 ft 7 in Weight 164 lb 2 oz BMI 25.7 BP 150/100 H 138/78 Blood Pressure Location Lt brachial Position Sitting Respiration 16 Pulse 74 Pulse Source Pulse Oximeter Pulse Oximetry (%) 98 Oxygen Delivery Method Room Air Intake Visit Reasons: f/u HTN/ memory issues Assisted Living Administrator Required: No Accompanied by: Self / Same As Patient Allergies No Known Allergies [No Known Allergies*] Allergy (Verified 04/15/23 11:12) Medication List - Last Reconciled 04/15/23 by Raulito Harden PA-C albuterol sulfate 90 mcg/actuation 2 puffs inhalation Q4-6H PRN 30 days apixaban (Eliquis) 5 mg PO BID ezetimibe (Zetia) 10 mg PO DAILY 90 days lisinopril 10 mg PO DAILY 90 days metoprolol tartrate 25 mg PO BID 90 days rosuvastatin 40 mg PO DAILY Tobacco use date assessed: 04/15/23 Fall risk assessment: No Falls in past year Last assessed Fall Risk: 04/15/23 Dental Screening Dental Screen Date: 04/15/23 Did you have a dental visit in the last 12 months?: No Did you have a dental problem in the last 6 months where you did not have access to dental care?: No Was dental information given to patient?: Patient has dentist HPI f/u HTN/ memory issues HPI Details Patient is a 72-year-old female here today for a? a f/u visit. Patient? has a past medical history significant for hypertension, hyperlipidemia, aortic valve replacement,AFIB, COPD, 6 mm pulmonary lung nodule, Has for gotten to get labs done Concern--> reports over the last 6-8 months having worsening memory issues. She reports she is unable to find words or remember which she was last doing. This is causing her some frustration her life. She has no family history of dementia or Alzheimer's. PLAN: We have ordered a brain MRI though unclear if this has been able to be scheduled or approved by insurance. ?Status post aortic valve replacement? 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 currently denies any chest dyscomfort, SOB.?Most recent echocardiograms have been stable without advancing structural cardiac disease.? EF acceptable She was found to have paroxysmal AFIB now on AC ( Apixaban ).? No overt signs of bleeding REcently underwent a transthoracic echo-->- A bioprosthetic aortic valve is present.? The prosthetic aortic valve appears to be functioning normally.? There is moderate mitral annular calcification.?? .. AFib: Continues on anticoagulation without any overt signs of bleeding. Continues on metoprolol with good control of her rate, also has pacemaker placed and gets a checked regularly by her garment manufacturing supervisor. .. Hypertension: Blood pressure readings elevated today in office. On recheck blood pressure much improved. Was also elevated at her recent cardiology visit. She otherwise denies any chest discomfort, headaches, vision issues. PLAN: Will continue current dose of lisinopril and metoprolol.. .. Congestive heart failure: Did have a acute episode of stress-induced cardiomyopathy causing pulmonary edema and was seen at [facility] back in 2021. Has since been stable and euvolemic without any further shortness of breath. . ?.. ?COPD/ pulmonary nodule: Patient? is followed by a clinical data research. Report breathing has been stable. [facility] Medical History PAF (paroxysmal atrial fibrillation) COPD (chronic obstructive pulmonary disease) Surgical History History of cataract extraction Status post aorto-coronary artery bypass graft Status post ascending aortic aneurysm repair Status post aortic valve replacement with bioprosthetic valve History of heart surgery Family History Father Myocardial infarction Mother No problems noted. Brother CAD (coronary artery disease) S/P CABG x 4 Social History Household Members: None Housing: House Alcohol intake: never Patient Tobacco Use Status: Former Tobacco user Years Smoked: 40 e-Cigarette/Vaping Use: Never Used Second Hand Smoke Exposure: No service: No Current occupational status: retired Cognitive needs: No Hearing needs: No Vision needs: Yes (glasses) Questionnaire PHQ-9 Over the last 2 weeks, how often have you been bothered by any of the following problems? 1. Little interest or pleasure in doing things: not at all 2. Feeling down, depressed, or hopeless: not at all 3. Trouble falling or staying asleep, or sleeping too much: not at all 4. Feeling tired or having little energy: not at all 5. Poor appetite or overeating: not at all 6. Feeling bad about yourself - or that you are a failure or have let yourself or your family down: not at all 7. Trouble concentrating on things, such as reading the newspaper or watching television: not at all 8. Moving or speaking so slowly that other people could have noticed. Or the opposite - being so fidgety or restless that you have been moving around a lot more than usual: not at all 9. Thoughts that you would be better off or of hurting yourself in some way: not at all Total score: 0 Depression Screening Interpretation: Negative Depression Screening Done: Yes 48648 - PHQ-9 Billing: Yes Source: Developed by Drs. Jorge Patel, Radha Morales, Steve Frias and colleagues, with an educational erasmo from [employer]. Thrive Questionnaire Date Thrive assessed: 04/15/23 I am a: Patient What is your living situation today?: I have a steady place to live Within the past 12 months, did the food you bought not last and you didn't have the money to get more?: Never true Within the past 12 months, did you worry whether your food would run out before you got money to buy more?: Never true Do you have trouble paying for medicines?: No Do you have trouble getting transportation to medical appointments?: No Do you have trouble paying your heating and electricity bill?: No Do you have trouble taking care of your child, family member or friend?: No Do you have trouble with day-to-day activities such as bathing, preparing meals, shopping, managing finances, etc.?: No Are you currently unemployed and looking for a job?: No Are you interested in more education?: No Please select the resources that you would like help with: None Currently or been in a relationship where the following occur: no concerns reported THRIVE Score: 0 AUDIT C Alcohol Use Questionnaire (AUDIT-C) 1. How often do you have a drink containing alcohol?: Never Total Score: 0 ROLAN-7 AMB Questionnaire ROLAN-7 Date ROLAN - 7 assessed: 04/15/23 Feeling nervous, anxious, or on edge: 0 = Not at all Not being able to stop or control worryin = Not at all Worrying too much about different things: 0 = Not at all Trouble relaxin = Not at all Being so restless that it is hard to sit still: 0 = Not at all Becoming easily annoyed or irritable: 0 = Not at all Feeling afraid as if something awful might happen: 0 = Not at all Total ROLAN-7 score (0-4 normal; 5-9 mild; 10-14 moderate; 15-21 severe): 0 Source: Developed by Drs. Jorge Patel, Radha Morales, Steve Frias and colleagues, with an educational erasmo from [employer]. ROLAN-7 Assessment Billing ROLAN-7 Assessment Tool: ROLAN-7 Assessment 16556 Review of Systems Const Denies headache(s) Eyes Denies loss of vision ENT Denies vertigo, Denies dizziness, Denies headache(s) and Denies sore throat Card Denies chest pain, Denies leg edema and Denies lightheadedness Resp Denies cough, Denies hemoptysis and Denies wheezing GI Denies abdominal pain, Denies melena, Denies constipation, Denies diarrhea and Denies vomiting Denies urinary frequency, Denies dysuria and Denies urinary urgency Musc Denies arthralgias, Denies joint swelling, Denies numbness and Denies tingling Neuro Denies Abnormal speech present, Denies behavioral changes, Denies vertigo, Denies dizziness, Denies headache(s), Denies loss of vision, Denies memory loss, Denies numbness and Denies tingling Psych Denies anxiety, Denies behavioral changes, Denies depression, Denies memory loss and Denies panic attacks Schuyler/Lymph Denies easy bleeding and Denies easy bruising Aller/Immun Denies wheezing Physical exam (Primary Care) Vital Signs: Last Vital Signs Pulse 74 04/15/23 10:56 Resp 16 04/15/23 10:56 BP 138/78 04/15/23 11:23 Pulse Ox 98 04/15/23 10:56 Oxygen Delivery Method Room Air 04/15/23 10:56 BMI result Body Mass Index 25.7 Tobacco/Smoking Status: Tobacco use Status Tobacco use date assessed 04/15/23 04/15/23 11:09 Patient Tobacco Use Status Former Tobacco user 04/15/23 10:58 e-Cigarette/Vaping Use Never Used 04/15/23 10:58 PHQ-9: PHQ-9 Score PHQ-9: Total score 0 04/15/23 11:14 Depression Screening Interpretation: Negative Thrive Assessment: Date of Thrive Assessment Date Thrive assessed 04/15/23 04/15/23 11:09 Currently or been in a relationship where the following occur: no concerns reported Const General: healthy appearing, no acute distress, alert and awake Nutritional Appearance: well nourished Orientation/consciousness: oriented to person, oriented to place and oriented to time HENMT Ears: TM's normal bilaterally General nose exam: Normal nasal mucous membranes and turbinates present Eyes Conjunctivae: conjunctivae normal Sclerae: sclerae normal Pupils: Equal, round and reactive pupils present Neck Neck: Yes no lymphadenopathy and Yes no JVD Thyroid: Thyroid normal Carotids: no bruits Resp Effort & Inspection: normal respiratory effort and not tachypneic Auscultation: no crackles, no rales, no rhonchi and no wheezes Cardio Rate: regular rate Rhythm: regular rhythm Heart sounds: no murmurs and normal S1 and S2 GI Palpation (GI): Soft to palpation, nontender, no hepatomegaly and no splenomegaly Auscultation: normal bowel sounds Skin General skin exam: no rashes or lesions noted and dry skin Neuro General: oriented to person, oriented to place and oriented to time Cranial nerves: Yes Equal, round and reactive pupils present Speech: No Abnormal speech present Gait exam (Neuro): Normal gait present Motor exam (neuro): no tremor noted Extrem Right upper extremity: full ROM Left upper extremity: full ROM Right lower extremity: full ROM; no edema Left lower extremity: full ROM; no edema Psych Mental Status: mental status grossly normal Speech and movement: Normal speech and movement present Affect: normal affect Attitude: cooperative Thought process: Normal thought process present Assessment and Plan Assessment & Plan (1) HTN (hypertension): Code(s): I10 - Essential (primary) hypertension Qualifiers: Hypertension type: primary hypertension Qualified Code(s): I10 - Essential (primary) hypertension Plan: Patient's blood pressure elevated originally in office, though repeat normalized.. Advised to start monitoring blood pressure at home with goal blood pressure be below 130/90. (2) Afib: Code(s): I48.91 - Unspecified atrial fibrillation Qualifiers: Atrial fibrillation type: paroxysmal Qualified Code(s): I48.0 - Paroxysmal atrial fibrillation Plan: Patient continues to follow cardiology, continues on anticoagulation without any overt signs of bleeding. Denies any recent episodes of heart palpitations or shortness of breath. Has upcoming visit with Cardiology in December of 2023 (3) Moderate COPD (chronic obstructive pulmonary disease): Code(s): J44.9 - Chronic obstructive pulmonary disease, unspecified Plan: Patient previous smoker. She continues to follow pulmonology. She denies any recent episodes of COPD exacerbations. Continues on daily trilogy. Rarely has to use her albuterol inhaler. (4) Memory impairment: Code(s): R41.3 - Other amnesia Plan: Patient having concerning memory impairment over the last 6-8 months. She reports she has been forgetting which she is doing in a train of thought, people's names ect.. Unclear if brain MRI was able to be approved and scheduled Coding Level of Care Code Est Pt Level 4 (98277) Diagnoses Primary hypertension I10 Hypertension type: primary hypertension Paroxysmal atrial fibrillation I48.0 Atrial fibrillation type: paroxysmal Moderate COPD (chronic obstructive pulmonary disease) J44.9 Memory impairment R41.3 Additional Codes ROLAN-7 Assessment Billing - ROLAN-7 Assessment Tool: ROLAN-7 Assessment 54895 ([id number])
[2023-04-15 10:56] VITALS: BP 150/100; PULSE 74; RESP 16; O2SAT 98; BMI 25.7
[2023-04-15 11:23] VITALS: BP 138/78
== END 2023-04-15 11:37 | disposition home or self-care (01) ==
PROVIDERS: PCP Physician Assistant; Visit Provider Physician Assistant
DX: I10 Essential (primary) hypertension (principal); I48.0 Paroxysmal atrial fibrillation; J44.9 Chronic obstructive pulmonary disease, unspecified; R41.3 Other amnesia
CPT/HCPCS: 99214

== ENCOUNTER 2023-04-27 16:10 | Outpatient (REF) | payer MEDICARE, SELFPAY ==
--- NOTE | ~2023-04-27 | CT_ITS ---
EXAMINATION: CT HEAD WITHOUT CONTRAST CLINICAL INFORMATION: Memory impairment. COMPARISON: None. TECHNIQUE: Contiguous axial imaging was performed from the skullbase to vertex without intravenous administration of contrast. This CT examination was performed using dose optimization techniques as appropriate, variously including the following: *Automated exposure control *Adjustment of mA and/or kV according to patient size (this includes techniques or standardized protocols for targeted exams where dose is matched to indication/reason for exam; i.e. extremities or head) *Use of iterative reconstruction technique DLP: 808 mGy-cm. FINDINGS: There is no evidence of acute intracranial hemorrhage or territorial infarction. No abnormal mass effect or midline shift is seen. No extra-axial fluid collections are identified. Moderate chronic white matter microangiopathic changes are present. Moderate diffuse brain parenchymal volume loss noted with commensurate ex vacuo dilatation of the ventricles. The osseous structures and soft tissues are normal. The mastoid air cells and visualized portions of the paranasal sinuses are well aerated. CT/CT head/brain wo IV con IMPRESSION: No acute intracranial hemorrhage or territorial infarction. Moderate generalized brain parenchymal volume loss and moderate chronic white matter microangiopathy.
== END 2023-04-27 16:11 | disposition home or self-care (01) ==
LOC: HO.CT 16:10
PROVIDERS: PCP Physician Assistant; Visit Provider Physician Assistant
DX: R41.3 Other amnesia (principal)
CPT/HCPCS: 70450

== ENCOUNTER → 2023-05-16 23:59 | Outpatient (BNV) | payer MEDICARE, SELFPAY ==
--- NOTE | 2023-05-24 19:16 | MHC.OFFVIS ---
Intake Intake Visit Reasons: Remote HF monitoring- [employer] Allergies No Known Allergies [No Known Allergies*] Allergy (Verified 04/15/23 11:12) PFSH Medical History PAF (paroxysmal atrial fibrillation) COPD (chronic obstructive pulmonary disease) Surgical History History of cataract extraction Status post aorto-coronary artery bypass graft Status post ascending aortic aneurysm repair Status post aortic valve replacement with bioprosthetic valve History of heart surgery Family History Father Myocardial infarction Mother No problems noted. Brother CAD (coronary artery disease) S/P CABG x 4 Social History Household Members: None Housing: House Alcohol intake: never Patient Tobacco Use Status: Former Tobacco user Years Smoked: 40 e-Cigarette/Vaping Use: Never Used Second Hand Smoke Exposure: No service: No Current occupational status: retired Cognitive needs: No Hearing needs: No Vision needs: Yes (glasses) Office Procedures Cardiac Device Check Cardiac Device Check Details: Date of service- 05/16/2023; based on impedance data and physiological variables, there is no evidence of worsening congestive heart failure. [id number] Cardiac Device Interrogation, cardio physiologic monitor Procedure code (CPT) selection complete Assessment & Plan Assessment & Plan (1) Stress-induced cardiomyopathy: Code(s): I51.81 - Takotsubo syndrome Plan: x Coding Level of Care Code Procedure Only Diagnoses Stress-induced cardiomyopathy I51.81 CPT Codes Cardiac Device Check - Cardiac Device 15: [id number] Cardiac Device Interrogation, cardio physiologic monitor ([id number])
== END ==
PROVIDERS: PCP Physician Assistant; Visit Provider Internal Medicine
DX: I51.81 Takotsubo syndrome (principal); Z95.0 Presence of cardiac pacemaker
CPT/HCPCS: 93297

== ENCOUNTER → 2023-06-28 23:59 | Outpatient (BNV) | payer MEDICARE, SELFPAY ==
--- NOTE | 2023-07-05 12:11 | MHC.OFFVIS ---
Intake Visit Reasons: Remote device check- [employer] Allergies No Known Allergies [No Known Allergies*] Allergy (Verified 04/15/23 11:12) PFSH Medical History PAF (paroxysmal atrial fibrillation) COPD (chronic obstructive pulmonary disease) Surgical History History of cataract extraction Status post aorto-coronary artery bypass graft Status post ascending aortic aneurysm repair Status post aortic valve replacement with bioprosthetic valve History of heart surgery Family History Father Myocardial infarction Mother No problems noted. 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 Overall normal device function. [id number] Cardiac Device Interrogation, pacemaker Procedure code (CPT) selection complete Assessment & Plan Assessment & Plan (1) PAF (paroxysmal atrial fibrillation): Code(s): I48.0 - Paroxysmal atrial fibrillation Category: Medical Plan x Coding Level of Care Code Procedure Only Diagnoses PAF (paroxysmal atrial fibrillation) I48.0 CPT Codes Cardiac Device Check - Cardiac Device 12: [id number] Cardiac Device Interrogation, pacemaker ([id number])
== END ==
PROVIDERS: PCP Physician Assistant; Visit Provider Internal Medicine
DX: I48.0 Paroxysmal atrial fibrillation (principal); Z95.0 Presence of cardiac pacemaker
CPT/HCPCS: 93294

== ENCOUNTER 2023-07-06 10:18 | Outpatient (REF) | payer MEDICARE, SELFPAY ==
--- NOTE | ~2023-07-06 | MR_ITS ---
EXAMINATION: MR BRAIN WITHOUT CONTRAST CLINICAL INFORMATION: Memory impairment. COMPARISON: Head CT from 04/27/2023. TECHNIQUE: Multiplanar, multisequence imaging of the brain was performed without contrast. FINDINGS: There is stable moderate diffuse brain parenchymal volume loss with commensurate ex vacuo prominence of the ventricles. [id number] chronic white matter microangiopathic changes are visible. There is a small chronic infarct in the right cerebellar hemisphere. No diffusion abnormalities are identified to suggest an acute infarct. No mass effect or midline shift is seen. No extra-axial fluid collections are seen. The brainstem is normal. The gradient refocused acquisition demonstrates no pathologic magnetic susceptibility artifact to indicate underlying acute or chronic blood products. The craniovertebral junction, marrow signal, and midline structures are normal. The major intracranial flow voids at the level of the [place] are preserved. The dural venous sinus flow voids are maintained. The paranasal sinuses are well aerated. Mild amount of fluid visible in the right mastoid air cells. Moderate right-sided facet arthropathy partially visualized at the C2-C3 level. MR/MR head/brain wo con IMPRESSION: No acute process. Moderate diffuse brain parenchymal volume loss with commensurate ex vacuo prominence of the ventricles. [id number] chronic white matter microangiopathy. Small chronic right cerebellar infarct.
== END 2023-07-06 10:19 | disposition home or self-care (01) ==
LOC: HO.MRI 10:18
PROVIDERS: PCP Physician Assistant; Visit Provider Physician Assistant
DX: R41.3 Other amnesia (principal)
CPT/HCPCS: 70551

== ENCOUNTER → 2023-09-29 23:59 | Outpatient (BNV) | payer MEDICARE, SELFPAY ==
--- NOTE | 2023-10-05 12:35 | MHC.OFFVIS ---
Intake Visit Reasons: Remote device check- [employer] Allergies No Known Allergies [No Known Allergies*] Allergy (Verified 04/15/23 11:12) PFSH Medical History PAF (paroxysmal atrial fibrillation) COPD (chronic obstructive pulmonary disease) Surgical History History of cataract extraction Status post aorto-coronary artery bypass graft Status post ascending aortic aneurysm repair Status post aortic valve replacement with bioprosthetic valve History of heart surgery Family History Father Myocardial infarction Mother No problems noted. 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 Overall normal device function. [id number] Cardiac Device Interrogation, pacemaker Procedure code (CPT) selection complete Assessment & Plan Assessment & Plan (1) PAF (paroxysmal atrial fibrillation): Code(s): I48.0 - Paroxysmal atrial fibrillation Category: Medical Plan x Coding Level of Care Code Procedure Only Diagnoses PAF (paroxysmal atrial fibrillation) I48.0 CPT Codes Cardiac Device Check - Cardiac Device 12: [id number] Cardiac Device Interrogation, pacemaker ([id number])
== END ==
PROVIDERS: PCP Physician Assistant; Visit Provider Internal Medicine
DX: I48.0 Paroxysmal atrial fibrillation (principal); Z95.0 Presence of cardiac pacemaker
CPT/HCPCS: 93294

== ENCOUNTER 2023-10-19 09:05 | Outpatient (AMB) | payer MEDICARE, SELFPAY ==
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
[2023-10-19 09:35] VITALS: BP 162/92; RESP 16; O2SAT 96; BMI 24.0
== END 2023-10-19 10:48 | disposition home or self-care (01) ==
PROVIDERS: PCP Physician Assistant; Visit Provider Psychiatry & Neurology Neurology
DX: F03.90 Unspecified dementia, unspecified severity, without behavioral disturbance, psychotic disturbance, mood disturbance, and anxiety (principal)
CPT/HCPCS: 99204; G2211

== ENCOUNTER 2023-10-19 10:52 | Outpatient (REF) | payer MEDICARE, SELFPAY ==
[2023-10-19 17:48] LABS: MANUAL DIFF FLAG NO
[2023-10-19 17:59] LABS: Basophils Absolute Auto 0.1 X10*3/uL (0.0-0.2); Basophils Percent Auto 0.8 % (0-2); Eosinophils Absolute Auto 0.2 X10*3/uL (0.0-0.4); Eosinophils Percent Auto 1.9 % (0-4); Hematocrit 46.8 % (37.0-47.0); Hemoglobin 15.7 g/dl (12.0-16.0); Imm Gran Abs Auto 0.02 X10*3/uL (0.00-0.03); Imm Gran Pct Auto 0.3 % (0.0-0.4); Lymphocytes Absolute Auto 1.8 X10*3/uL (1.2-4.9); Lymphocytes Percent Auto 22.9 % (20-40); Mean Corpuscular HGB Conc 33.5 g/dl (31.0-35.0); Mean Corpuscular Hemoglobin 29.2 pg (27.0-33.0); Mean Corpuscular Volume 87.2 fL (80.0-98.0); Mean Platelet Volume 11.9 fL (9.4-12.3); Monocytes Absolute Auto 0.4 X10*3/uL (0.1-1.2); Monocytes Percent Auto 5.4 % (2-11); Neutrophils Absolute Auto 5.5 x10*3/uL (2.0-8.3); Neutrophils Percent Auto 68.7 % (45-73); Platelet Count 260 X10*3/uL (160-400); Red Blood Count 5.37 X10*6/uL (4.20-5.50)
[2023-10-19 18:33] LABS: Alanine Aminotransferase 13 U/L (0-31); Albumin Level 4.6 g/dL (3.5-5.0); Alkaline Phosphatase 54 U/L (39-117); Anion Gap 13 (12-20); Aspartate Amino Transferase 20 U/L (5-31); Bilirubin Total 0.6 mg/dL (0.0-1.0); Blood Urea Nitrogen 20 mg/dL (9-16); Calcium 10.3 mg/dL (8.4-10.2); Carbon Dioxide 26 mmol/L (22-29); Chloride 105 mmol/L (96-108); Estimated Glomerular Filt Rate > 60; Glucose Random 86 mg/dL (60-115); Potassium 4.2 mmol/L (3.3-5.1); Sodium 140 mmol/L (135-145); Total Protein 8.2 g/dL (6.5-8.0)
[2023-10-19 18:53] LABS: Erythrocyte Sedimentation Rate 5 MM/HR (0-20); TSH reflex Free T4 3.81 uIU/mL (0.32-4.0)
[2023-10-19 20:16] LABS: Folate 10.6 ng/mL (> or = 4.0); Vitamin B12 686 pg/mL (200-900)
[2023-10-21 09:48] LABS: Anti Nuclear Antibody Screen NEGATIVE (NEGATIVE)
[2023-10-23 16:29] LABS: Vitamin D 25-OH, D2 <4 ng/mL; Vitamin D 25-OH, D3 27 ng/mL; Vitamin D 25-OH, Total 27 ng/mL (30-100)
== END 2023-10-19 10:53 | disposition home or self-care (01) ==
LOC: HO.HKASLDS 10:52
PROVIDERS: Visit Provider Psychiatry & Neurology Neurology
DX: F03.90 Unspecified dementia, unspecified severity, without behavioral disturbance, psychotic disturbance, mood disturbance, and anxiety (principal)
CPT/HCPCS: 36415; 80053; 82306; 82607; 82746; 84443; 85025; 85652; 86038; 99202

== ENCOUNTER → 2023-12-31 23:59 | Outpatient (BNV) | payer MEDICARE, SELFPAY ==
--- NOTE | 2024-01-02 09:33 | A.OFFVIS_ITS ---
Intake Visit Reasons: Remote device check- Biotronik Allergies No Known Allergies [No Known Allergies*] Allergy (Verified 10/19/23 09:35) [facility] Medical History (Updated 01/02/24 @ 09:34 by Martin Betancourt MD) Dementia PAF (paroxysmal atrial fibrillation) COPD (chronic obstructive pulmonary disease) Surgical History History of cataract extraction Status post aorto-coronary artery bypass graft Status post ascending aortic aneurysm repair Status post aortic valve replacement with bioprosthetic valve History of heart surgery Family History Father Myocardial infarction Mother No problems noted. Brother CAD (coronary artery disease) S/P CABG x 4 Social History Household Members: None Housing: House Alcohol intake: never Patient Tobacco Use Status: Former Tobacco user Years Smoked: 40 e-Cigarette/Vaping Use: Never Used Second Hand Smoke Exposure: No service: No Current occupational status: retired Cognitive needs: No Hearing needs: No Vision needs: Yes (glasses) Office Procedures Cardiac Device Check Cardiac Device Check Details: Date of service- 12/31/2023 ; Battery life 60%; normal lead parameters; AP 7%; LINKER UP 1%; no significant arrhythmias. Overall normal device function. [id number] Cardiac Device Interrogation, pacemaker Procedure code (CPT) selection complete Assessment & Plan Assessment & Plan (1) Pacemaker: Code(s): Z95.0 - Presence of cardiac pacemaker Category: Medical (2) Status post aortic valve replacement with bioprosthetic valve: Comment: Aortic valve replaced in 2018 Code(s): Z95.3 - Presence of xenogenic heart valve Category: Surgical Plan x Coding Level of Care Code Procedure Only Diagnoses Pacemaker Z95.0 Status post aortic valve replacement with bioprosthetic valve Z95.3 CPT Codes Cardiac Device Check - Cardiac Device 12: [id number] Cardiac Device Interrogation, pacemaker ([id number])
== END ==
PROVIDERS: PCP Physician Assistant; Visit Provider Internal Medicine
DX: Z45.018 Encounter for adjustment and management of other part of cardiac pacemaker (principal); Z95.3 Presence of xenogenic heart valve
CPT/HCPCS: 93294

== ENCOUNTER 2024-02-23 12:00 | Emergency (ER) | payer MEDICARE, SELFPAY ==
[2024-02-23 12:53] VITALS: BP 202/100; PULSE 90; O2SAT 97
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
[2024-02-23 13:41] LABS: MANUAL DIFF FLAG NO
[2024-02-23 13:43] LABS: Basophils Percent Auto 0.5 % (0-2); Eosinophils Absolute Auto 0.1 X10*3/uL (0.0-0.4); Eosinophils Percent Auto 1.3 % (0-4); Hematocrit 43.6 % (37.0-47.0); Hemoglobin 14.8 g/dl (12.0-16.0); Imm Gran Abs Auto 0.02 X10*3/uL (0.00-0.03); Imm Gran Pct Auto 0.3 % (0.0-0.4); Lymphocytes Absolute Auto 1.6 X10*3/uL (1.2-4.9); Lymphocytes Percent Auto 20.2 % (20-40); Mean Corpuscular HGB Conc 33.9 g/dl (31.0-35.0); Mean Corpuscular Hemoglobin 29.7 pg (27.0-33.0); Mean Corpuscular Volume 87.4 fL (80.0-98.0); Monocytes Absolute Auto 0.5 X10*3/uL (0.1-1.2); Monocytes Percent Auto 5.9 % (2-11); Neutrophils Absolute Auto 5.7 x10*3/uL (2.0-8.3); Neutrophils Percent Auto 71.8 % (45-73); Platelet Count 195 X10*3/uL (160-400); Red Blood Count 4.99 X10*6/uL (4.20-5.50); Red Cell Distribution Width 12.4 % (11.0-16.0)
[2024-02-23 13:47] VITALS: BP 169/62; PULSE 77; RESP 18; TEMP 36.6; O2SAT 97; BMI 21.8
[2024-02-23 13:58] LABS: Alanine Aminotransferase 9 U/L (0-31); Albumin Level 4.2 g/dL (3.5-5.0); Alkaline Phosphatase 54 U/L (39-117); Anion Gap 10 (12-20); Aspartate Amino Transferase 24 U/L (5-31); Bilirubin Total 0.7 mg/dL (0.0-1.0); Blood Urea Nitrogen 24 mg/dL (9-16); Calcium 10.1 mg/dL (8.4-10.2); Carbon Dioxide 26 mmol/L (22-29); Chloride 108 mmol/L (96-108); Estimated Glomerular Filt Rate > 60; Glucose Random 82 mg/dL (60-115); Magnesium 2.1 mg/dL (1.6-2.6); Potassium 4.4 mmol/L (3.3-5.1); Sodium 140 mmol/L (135-145); Total Protein 7.5 g/dL (6.5-8.0)
[2024-02-23 14:23] LABS: Influenza A PCR NEGATIVE (Negative); Influenza B PCR NEGATIVE (Negative); Resp Syncy Virus RNA Qual PCR NEGATIVE (Negative); SARS COV2 PCR INHOUSE NEGATIVE (Negative)
[2024-02-23 14:50] VITALS: BP 189/63; PULSE 72; RESP 14; TEMP 36.2; O2SAT 97
[2024-02-23 15:16] VITALS: BP 189/63; PULSE 72; RESP 14; TEMP 36.2; O2SAT 97
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
== END 2024-02-23 15:16 | disposition home or self-care (01) ==
PROVIDERS: Physician Assistant Medical; Emergency Provider Student in an Organized Health Care Education/Training Program; PCP Physician Assistant
DX: R41.82 Altered mental status, unspecified (principal); Z91.148 Patient's other noncompliance with medication regimen for other reason; Z03.818 Encounter for observation for suspected exposure to other biological agents ruled out; Z79.899 Other long term (current) drug therapy
CPT/HCPCS: 0241U; 80053; 83735; 85025; 99283

== ENCOUNTER → 2024-03-03 23:59 | Outpatient (BNV) | payer MEDICARE, SELFPAY ==
--- NOTE | 2024-03-05 11:31 | MHC.OFFVIS ---
Intake Visit Reasons: Remote device check- Biotronik Allergies No Known Allergies [No Known Allergies*] Allergy (Verified 02/23/24 13:53) PFSH Medical History Dementia PAF (paroxysmal atrial fibrillation) COPD (chronic obstructive pulmonary disease) Surgical History History of cataract extraction Status post aorto-coronary artery bypass graft Status post ascending aortic aneurysm repair Status post aortic valve replacement with bioprosthetic valve History of heart surgery Family History Father Myocardial infarction Mother No problems noted. 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 Overall normal device function. [id number] Cardiac Device Interrogation, pacemaker Procedure code (CPT) selection complete Assessment & Plan Assessment & Plan (1) Pacemaker: Code(s): Z95.0 - Presence of cardiac pacemaker Category: Medical (2) PAF (paroxysmal atrial fibrillation): Code(s): I48.0 - Paroxysmal atrial fibrillation Category: Medical Plan x Coding Level of Care Code Procedure Only Diagnoses Pacemaker Z95.0 PAF (paroxysmal atrial fibrillation) I48.0 CPT Codes Cardiac Device Check - Cardiac Device 12: [id number] Cardiac Device Interrogation, pacemaker ([id number])
== END ==
PROVIDERS: PCP Physician Assistant; Visit Provider Internal Medicine
DX: I48.0 Paroxysmal atrial fibrillation (principal); Z95.0 Presence of cardiac pacemaker
CPT/HCPCS: 93294

== ENCOUNTER → 2024-04-06 23:59 | Outpatient (BNV) | payer MEDICARE, SELFPAY ==
--- NOTE | 2024-04-06 12:26 | A.OFFVIS_ITS ---
Intake Visit Reasons: Remote device check- Biotronik Allergies No Known Allergies [No Known Allergies*] Allergy (Verified 02/23/24 13:53) PFSH Medical History Dementia PAF (paroxysmal atrial fibrillation) COPD (chronic obstructive pulmonary disease) Surgical History History of cataract extraction Status post aorto-coronary artery bypass graft Status post ascending aortic aneurysm repair Status post aortic valve replacement with bioprosthetic valve History of heart surgery Family History Father Myocardial infarction Mother No problems noted. Brother CAD (coronary artery disease) S/P CABG x 4 Social History Household Members: None Housing: House Alcohol intake: never Patient Tobacco Use Status: Former Tobacco user Years Smoked: 40 e-Cigarette/Vaping Use: Never Used Second Hand Smoke Exposure: No service: No Current occupational status: retired Cognitive needs: No Hearing needs: No Vision needs: Yes (glasses) Office Procedures Cardiac Device Check Cardiac Device Check Details: Date of service- 04/06/2024 ; Battery life 60%; normal lead parameters; AP 8%; [employer] 1%; no significant arrhythmias. Overall normal device function. [id number] Cardiac Device Interrogation, pacemaker Procedure code (CPT) selection complete Assessment & Plan Assessment & Plan (1) Pacemaker: Code(s): Z95.0 - Presence of cardiac pacemaker Category: Medical (2) PAF (paroxysmal atrial fibrillation): Code(s): I48.0 - Paroxysmal atrial fibrillation Category: Medical Plan x Coding Level of Care Code Procedure Only Diagnoses Pacemaker Z95.0 PAF (paroxysmal atrial fibrillation) I48.0 CPT Codes Cardiac Device Check - Cardiac Device 12: [id number] Cardiac Device Interrogation, pacemaker ([id number])
== END ==
PROVIDERS: PCP Physician Assistant; Visit Provider Internal Medicine
DX: I48.0 Paroxysmal atrial fibrillation (principal); Z95.0 Presence of cardiac pacemaker
CPT/HCPCS: 93294

== ENCOUNTER 2024-05-03 08:04 | Outpatient (AMB) | payer MEDICARE, SELFPAY ==
[2024-05-03 08:06] VITALS: BP 118/82; BMI 21.1
--- NOTE | 2024-05-03 08:06 | A.OFFVIS_ITS ---
Vital Signs 05/03/24 08:06 Height 5 ft 6 in Weight 131 lb BMI 21.1 BP 118/82 Blood Pressure Location Rt brachial Position Sitting Intake Visit Reasons: f/u appt Intake Note: Patient following up on labs done 10/19/23 and med trial memantine Allergies No Known Allergies [No Known Allergies*] Allergy (Verified 05/03/24 08:09) Medication List - Last Reconciled 05/03/24 by Sherry Calderon MD albuterol sulfate 90 mcg/actuation 2 puffs inhalation Q4-6H PRN 30 days apixaban (Eliquis) 5 mg PO BID ezetimibe (Zetia) 10 mg PO DAILY 90 days lisinopril 10 mg PO DAILY 90 days memantine 28 mg PO DAILY metoprolol tartrate 25 mg PO BID 90 days rosuvastatin 40 mg PO DAILY HPI Comments Details: 73y/o Right Handed female comes for follow up of dementia . she is on memantine XR 28 mg qd . she has [facility] setting up her medications. she gets meals on wheels through [employer] [facility].she stopped driving.Her friends come over or drive her to places. she noticed short term memory issues about 1 year ago and has been progressing. she frequently loses things especially keys,has trouble with names,has trouble word recall, word finding difficulties etc.she is independent in all her ADLS. Mood- mild depression and some anxiety SLeep-good. Her son takes care of her finances- she missed bills, forgot how to write checks Numbers are harder, sense of time is confusing for her. [facility] Medical History Dementia PAF (paroxysmal atrial fibrillation) COPD (chronic obstructive pulmonary disease) Surgical History History of cataract extraction Status post aorto-coronary artery bypass graft Status post ascending aortic aneurysm repair Status post aortic valve replacement with bioprosthetic valve History of heart surgery Family History Father Myocardial infarction Mother No problems noted. Brother CAD (coronary artery disease) S/P CABG x 4 Social History Household Members: None Housing: House Alcohol intake: never Patient Tobacco Use Status: Former Tobacco user Years Smoked: 40 e-Cigarette/Vaping Use: Never Used Second Hand Smoke Exposure: No service: No Current occupational status: retired Cognitive needs: No Hearing needs: No Vision needs: Yes (glasses) Physical Exam Vital Signs: Last Vital Signs BP 118/82 05/03/24 08:06 BMI result Body Mass Index 21.1 Const General: cooperative, healthy appearing, comfortable and no acute distress Nutritional Appearance: average body habitus Orientation/consciousness: oriented to person Eyes Pupils: Equal, round and reactive pupils present Neuro General: oriented to person, No gait normal, tone normal and moves all extremities Cranial nerves: Yes Facial sensation intact/muscles of mastication intact, Yes Equal, round and reactive pupils present, Yes Bilaterally intact EOM present, Yes Nystagmus not present, Yes Normal facial strength present, Yes Midline tongue present, Yes Symmetric palate elevation present and Yes Ability to bilaterally elevate shoulders present Cognition (Neuro): abnormal cognition Gait exam (Neuro): Normal gait present Motor exam (neuro): 5/5 motor strength present throughout and Normal motor muscle tone present throughout Coordination: hyibzp-qd-mlym test normal Psych Appearance: grossly normal Assessment & Plan Assessment & Plan (1) Dementia: Comment: mild to moderate , Alzheimers vs mixed dementia MOCA 02/06 Code(s): F03.90 - Unspecified dementia, unspecified severity, without behavioral disturbance, psychotic disturbance, mood disturbance, and anxiety Category: Medical Qualifiers: Dementia type: Alzheimer's Alzheimer's disease onset: late onset Dementia severity: moderate Dementia behavioral or psychological symptom: without behavioral, psychotic, or mood disturbance or anxiety Qualified Code(s): G30.1 - Alzheimer's disease with late onset; F02.B0 - Dementia in other diseases classified elsewhere, moderate, without behavioral disturbance, psychot ic disturbance, mood disturbance, and anxiety Plan Reviewed MRI Brain she is too advanced to be a candidate for antiamyloid therapy Memantine XR 28 mg F/u [facility] for senior services- Meals on wheels, giving medications, light house keeping, meal prep etc. Discussed with family about moving to an assisted living facility with memory care unit F/u cardiology Needs life alert . Medications: New cholecalciferol (vitamin D3) 125 mcg PO QAM 90 caps 6RF Refilled memantine 28 mg PO DAILY 30 ea 6RF Discontinued memantine Discontinued Reason: Patient no longer taking 7 mg PO DAILY 14 ea 0RF memantine Discontinued Reason: Patient no longer taking 14 mg PO DAILY 14 ea 0RF Coding Level of Care Code Est Pt Level 4 (21954) Diagnoses Moderate late onset Alzheimer's dementia without behavioral disturbance, psychotic disturbance, mood disturbance, or anxiety G30.1; F02.B0 Dementia type: Alzheimer's Alzheimer's disease onset: late onset Dementia severity: moderate Dementia behavioral or psychological symptom: without behavioral, psychotic, or mood disturbance or anxiety
--- OUTSIDE RECORDS SUMMARY | 2024-05-03 08:16 | XMS_ITS | Continuity of Care Document ---
Author Organization [facility] Address [address] [address] Phone Care Team Providers Care Environmental Science Program Director Name Role Phone Tatum ESCOBAR, Salvatore Unavailable Unavaila ble Advance Directives Directive Yes / No Effective Date File Name No Information Encounters Encounter Description Practice Location Reason(s) For Visit Diagnoses Date Provider [facility], [address], [id number], [place] tel:[phone] [place] No Information 2023 Tatum [address]. [address] [facility] [place], [place], [id number], [place]. tel:[phone] Family History Family Member Type Diagnosis Age At Onset No Information Payers Payer name Insurance type Covered alliance party ID Authoriza tion(s) No Information Social History Type Description Quantity Date Captured Comments Sex Female Smoking Status No Information Chief Complaint And Reason For Visit No Information History Of Present Illness Encounter Date Complaint History Of Prese nt Illness No Information Instructions Date Instruction Additional Infor mation No Information Assessments Type Assessment Date No Information
== END 2024-05-03 08:36 | disposition home or self-care (01) ==
PROVIDERS: PCP Physician Assistant; Visit Provider Psychiatry & Neurology Neurology
DX: G30.1 Alzheimer's disease with late onset (principal); F02.B0 Dementia in other diseases classified elsewhere, moderate, without behavioral disturbance, psychotic disturbance, mood disturbance, and anxiety
CPT/HCPCS: 99214

== ENCOUNTER → 2024-05-03 08:04 | Outpatient (BNVA) | payer MEDICARE, SELFPAY | PROVIDERS: PCP Physician Assistant; Visit Provider Psychiatry & Neurology Neurology | DX: G30.1 Alzheimer's disease with late onset (principal); F02.B0 Dementia in other diseases classified elsewhere, moderate, without behavioral disturbance, psychotic disturbance, mood disturbance, and anxiety | CPT/HCPCS: 99212 ==

== ENCOUNTER → 2024-07-04 23:59 | Outpatient (BNV) | payer MEDICARE, SELFPAY ==
--- NOTE | 2024-07-09 09:45 | MHC.OFFVIS ---
Intake Visit Reasons: Remote device check- Biotronik Allergies No Known Allergies [No Known Allergies*] Allergy (Verified 05/03/24 08:09) PFSH Medical History Dementia PAF (paroxysmal atrial fibrillation) COPD (chronic obstructive pulmonary disease) Surgical History History of cataract extraction Status post aorto-coronary artery bypass graft Status post ascending aortic aneurysm repair Status post aortic valve replacement with bioprosthetic valve History of heart surgery Family History Father Myocardial infarction Mother No problems noted. Brother CAD (coronary artery disease) S/P CABG x 4 Social History Household Members: None Housing: House Alcohol intake: never Patient Tobacco Use Status: Former Tobacco user Years Smoked: 40 e-Cigarette/Vaping Use: Never Used Second Hand Smoke Exposure: No service: No Current occupational status: retired Cognitive needs: No Hearing needs: No Vision needs: Yes (glasses) Office Procedures Cardiac Device Check Cardiac Device Check Details: Date of service- 07/04/2024 ; Battery life 55%; normal lead parameters; AP 12%; LACE WEAVER 1%; no significant arrhythmias. Overall normal device function. [id number] Cardiac Device Interrogation, pacemaker Procedure code (CPT) selection complete Assessment & Plan Assessment & Plan (1) Pacemaker: Code(s): Z95.0 - Presence of cardiac pacemaker Category: Medical (2) PAF (paroxysmal atrial fibrillation): Code(s): I48.0 - Paroxysmal atrial fibrillation Category: Medical Plan x Coding Level of Care Code Procedure Only Diagnoses Pacemaker Z95.0 PAF (paroxysmal atrial fibrillation) I48.0 CPT Codes Cardiac Device Check - Cardiac Device 12: [id number] Cardiac Device Interrogation, pacemaker ([id number])
== END ==
PROVIDERS: PCP Physician Assistant; Visit Provider Internal Medicine
DX: I48.0 Paroxysmal atrial fibrillation (principal); Z95.0 Presence of cardiac pacemaker
CPT/HCPCS: 93294

== ENCOUNTER 2024-09-04 13:13 | Outpatient (REF) | payer MEDICARE, SELFPAY ==
[2024-09-04 15:15] LABS: Cholesterol 191 mg/dL (<200); HDL Cholesterol 64 mg/dL (>40); Triglycerides 121 mg/dL (<150)
== END 2024-09-04 13:14 | disposition home or self-care (01) ==
LOC: HO.LAB 13:13
PROVIDERS: PCP Physician Assistant; Visit Provider Internal Medicine
DX: Z45.010 Encounter for checking and testing of cardiac pacemaker pulse generator [battery] (principal); I10 Essential (primary) hypertension; I48.0 Paroxysmal atrial fibrillation; I35.0 Nonrheumatic aortic (valve) stenosis; I51.81 Takotsubo syndrome; E78.5 Hyperlipidemia, unspecified; Z86.79 Personal history of other diseases of the circulatory system; Z95.3 Presence of xenogenic heart valve; Z95.1 Presence of aortocoronary bypass graft; Z98.890 Other specified postprocedural states; Z79.01 Long term (current) use of anticoagulants
CPT/HCPCS: 36415; 80061; 93005; 93280; 99212

== ENCOUNTER 2024-09-04 13:13 | Outpatient (AMB) | payer MEDICARE, SELFPAY ==
--- OUTSIDE RECORDS SUMMARY | 2024-05-19 07:19 | XMS_ITS | Continuity of Care Document ---
Author Organization [facility] Address [address] [address] Phone Care Team Providers Care Glass Engraver Name Role Phone Juan ESCOBAR/JODY/LEILA, Dioni Unavailable Unavaila ble Advance Directives Directive Yes / No Effective Date File Name No Information Encounters Encounter Description Practice Location Reason(s) For Visit Diagnoses Date Provider [facility], [address], [id number], [place] tel:[phone] [address] [place] [address] No Information 2024 Juan Wheatley. 1 [place], [place], [id number], [place]. tel:[phone] Family History Family Member Type Diagnosis Age At Onset No Information Payers Payer name Insurance type Covered green party ID Authoriza tion(s) No Information Social History Type Description Quantity Date Captured Comments Sex Female Smoking Status No Information Chief Complaint And Reason For Visit No Information History Of Present Illness Encounter Date Complaint History Of Prese nt Illness No Information Instructions Date Instruction Additional Infor mation No Information Assessments Type Assessment Date No Information
[2024-09-04 13:40] VITALS: BP 140/78; PULSE 60; BMI 21.1
--- NOTE | 2024-09-04 13:40 | A.OFFVIS_ITS ---
Vital Signs 09/04/24 13:40 Height 5 ft 6 in Weight 131 lb BMI 21.1 BP 140/78 H Blood Pressure Location Lt brachial Position Sitting Pulse 60 Pulse Source Monitor Intake Visit Reasons: fu with device check biotronik Allergies No Known Allergies (No Known Allergies*) Allergy (Verified 05/03/24 08:09) Medication List - Last Reconciled 09/04/24 by Martin Betancourt MD albuterol sulfate 90 mcg/actuation 2 puffs inhalation Q4-6H PRN 30 days apixaban (Eliquis) 5 mg PO BID ezetimibe (Zetia) 10 mg PO DAILY 90 days lisinopril 10 mg PO DAILY 90 days memantine 28 mg PO DAILY metoprolol tartrate 25 mg PO BID 90 days rosuvastatin 40 mg PO DAILY HPI Comments Details: Nikky returns for follow-up regarding her cardiac issues. To recall, she had severe aortic stenosis, coronary disease as well as an ascending aortic aneurysm. She underwent surgical repair of the same. 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 Cardiac catheterization relatively unchanged compared to before. It seems that there were issues with her house being foreclosed and hence she was under lot of mental stress, which might have been the precipitating factor. For the last couple of years, main issue is rather memory. Short-term memory loss. Per neurology note, diagnosed to have Alzheimer's versus mixed dementia. Also, it seems that she has lost more than 40 lb in weight over the last couple of years. [facility] Medical History Dementia PAF (paroxysmal atrial fibrillation) COPD (chronic obstructive pulmonary disease) Surgical History History of cataract extraction Status post aorto-coronary artery bypass graft Status post ascending aortic aneurysm repair Status post aortic valve replacement with bioprosthetic valve History of heart surgery Family History Father Myocardial infarction Mother No problems noted. Brother CAD (coronary artery disease) S/P CABG x 4 Social History Household Members: None Housing: House Alcohol intake: never Patient Tobacco Use Status: Former Tobacco user Years Smoked: 40 e-Cigarette/Vaping Use: Never Used Second Hand Smoke Exposure: No service: No Current occupational status: retired Cognitive needs: No Hearing needs: No Vision needs: Yes (glasses) Review of Systems Const Denies weakness ENT Denies dizziness Card Denies chest pain, Denies chest pain with activity, Denies syncope, Denies rapid heart rate, Denies pedal edema, Denies edema, Denies leg edema, Denies lightheadedness, Denies palpitations, Denies dyspnea, Denies dyspnea on exertion and Denies orthopnea Resp Denies cough, Denies dyspnea and Denies dyspnea on exertion GI Denies hematochezia and Denies change in stool character Musc Denies abnormal gait, Denies muscle cramps, Denies muscle weakness, Denies numbness, Denies radiating pain into limb and Denies tingling Neuro Denies abnormal gait, Denies dizziness, Denies syncope, Denies numbness, Denies tingling and Denies weakness Endo Denies palpitations Physical Exam Vital Signs: Last Vital Signs Pulse 60 09/04/24 13:40 BP 140/78 H 09/04/24 13:40 BMI result Body Mass Index 21.1 Const General: comfortable and no acute distress Orientation/consciousness: patient oriented x3 HEENT Other: Unremarkable Head: Yes normal to inspection Neck Neck: Yes normal visual inspection Chest Chest palpation & inspection: normal inspection of the chest Resp Auscultation: clear to auscultation bilaterally Cardio Palpation: normal PMI Heart sounds: S1 normal heart sound present, S2 normal heart sound present, no gallops, Murmur heart sound present systolic II/ and at the right sternal border and no rubs GI Palpation (GI): Soft to palpation Back/Spine/Pelvis Other: unremarkable Skin General skin exam: no rashes or lesions noted Neuro General: patient oriented x3 Extrem General: Yes normal to inspection Psych Mental Status: mental status grossly normal Office Procedures Cardiac Device Check Cardiac Device Check Details: Pacemaker interrogated today. Dual-chamber device, programmed DDD. Battery status 55%. Normal lead parameters. Episode of atrial flutter for 6 hours in 12/2023-mean ventricular rate 103/Min. Overall, normal pacemaker function. [id number] Cardiac Device Check, pacemaker dual lead Procedure code (CPT) selection complete EKG Details: EKG with underlying sinus rhythm at 60/Min; sinus arrhythmia; intermittent atrial pacing; PVC. [id number], Complete Assessment & Plan Assessment & Plan (1) Status post aortic valve replacement with bioprosthetic valve: Comment: Aortic valve replaced in 2018 Code(s): Z95.3 - Presence of xenogenic heart valve Category: Surgical Plan: Normal function based on the last echocardiogram. (2) Status post aorto-coronary artery bypass graft: Code(s): Z95.1 - Presence of aortocoronary bypass graft Category: Surgical Plan: Status post 1 vessel bypass to RCA acute marginal branch. In the last catheterization, findings unchanged from before. From [facility]-LDL 86 mg/dL. Triglycerides 158 mg/dL. History of 92 mg/dL. Continue statins, zetia. Recheck lipids. (3) Status post ascending aortic aneurysm repair: Code(s): Z98.890 - Other specified postprocedural states; Z86.79 - Personal history of other diseases of the circulatory system Category: Surgical Plan: #26 Hemashield graft. Per last cardiac surgery note, ascending aortic diameter 3.5 cm. She may continue follow up with Cardiac surgery. (4) PAF (paroxysmal atrial fibrillation): Code(s): I48.0 - Paroxysmal atrial fibrillation Category: Medical Plan: Continue beta-blockers and Eliquis. (5) Stress-induced cardiomyopathy: Code(s): I51.81 - Takotsubo syndrome Category: Medical Plan: Follow-up echocardiogram with normalized LVEF. Cardiac catheterization with unchanged findings compared to 2018. Clinically, she has got no symptoms. (6) HTN (hypertension): Code(s): I10 - Essential (primary) hypertension Category: Medical Qualifiers: Hypertension type: primary hypertension Qualified Code(s): I10 - Essential (primary) hypertension Plan: Borderline high blood pressure today. She has lost lot of weight over the last 2 years. May follow the trend. If necessary, adjust meds. Plan Discussed with son who came for appointment. Also recommend PCP follow-up visit. Orders: Orders Lipid Panel Today E78.5 - Hyperlipidemia, unspecified, Z95.1 - Presence of aortocoronary bypass graft Coding Level of Care Code Est Pt Level 4 (37546) Complex EM visit Add On G2211 Diagnoses Status post aortic valve replacement with bioprosthetic valve Z95.3 Status post aorto-coronary artery bypass graft Z95.1 Status post ascending aortic aneurysm repair Z98.890; Z86.79 PAF (paroxysmal atrial fibrillation) I48.0 Stress-induced cardiomyopathy I51.81 Primary hypertension I10 Hypertension type: primary hypertension CPT Codes Cardiac Device Check - Cardiac Device 2: [id number] Cardiac Device Check, pac emaker dual lead ([id number]) EKG - CPT: 06986-Dcmasmkygoumoapni, Complete ([id number])
== END 2024-09-04 14:04 | disposition home or self-care (01) ==
LOC: HO.HCS 13:13
PROVIDERS: PCP Physician Assistant; Visit Provider Internal Medicine
DX: I48.0 Paroxysmal atrial fibrillation (principal); I10 Essential (primary) hypertension; I51.81 Takotsubo syndrome; Z95.3 Presence of xenogenic heart valve; Z95.1 Presence of aortocoronary bypass graft; Z98.890 Other specified postprocedural states; Z86.79 Personal history of other diseases of the circulatory system
CPT/HCPCS: 93010; 93280; 99214; G2211

== ENCOUNTER 2024-09-25 07:54 | Outpatient (AMB) | payer MEDICARE, SELFPAY ==
--- OUTSIDE RECORDS SUMMARY | 2024-05-19 07:19 | XMS_ITS | Continuity of Care Document ---
Author Organization [facility] Address [address] [address] Phone Care Team Providers Care Berry Picker Name Role Phone Juan ESCOBAR/JODY/LEILA, Dioni Unavailable Unavaila ble Advance Directives Directive Yes / No Effective Date File Name No Information Encounters Encounter Description Practice Location Reason(s) For Visit Diagnoses Date Provider [facility], [address], [id number], [place] tel:[phone] [address] [place] [address] No Information 2024 Juan Wheatley. 1 [place], [place], [id number], [place]. tel:[phone] Family History Family Member Type Diagnosis Age [...]
--- NOTE | 2024-09-25 07:55 | A.OFFVIS_ITS ---
Vital Signs 09/25/24 07:56 Height 5 ft 6 in Weight 135 lb 2 oz BMI 21.8 BP 120/82 Blood Pressure Location Lt brachial Position Sitting Pulse 64 Pulse Source Pulse Oximeter Pulse Oximetry (%) 98 Oxygen Delivery Method Room Air Intake Visit Reasons: Follow-up Intake Note: Patient presents follow up for dementia Head Of Measurement & Insights Required: No Accompanied by: sons Allergies No Known Allergies (No Known Allergies*) Allergy (Verified 09/25/24 08:01) HPI Comments Details: 74y/o Right Handed female comes for follow up of dementia . she is on memantine XR 28 mg qd . she lives in a intermediate. she is doing well as per her sons. Forgets her bight time meds sometimes she gets meals on wheels through [employer] [facility].she stopped driving.Her friends come over or drive her to places. she frequently loses things especially keys,has trouble with names,has trouble word recall, word finding difficulties etc.she is independent in all her ADLS. Mood- mild depression and some anxiety SLeep-good. Her son takes care of her finances- she missed bills, forgot how to write checks Numbers are harder, sense of time is confusing for her. [facility] Medical History Dementia PAF (paroxysmal atrial fibrillation) COPD (chronic obstructive pulmonary disease) Surgical History History of cataract extraction Status post aorto-coronary artery bypass graft Status post ascending aortic aneurysm repair Status post aortic valve replacement with bioprosthetic valve History of heart surgery Family History Father Myocardial infarction Mother No problems noted. Brother CAD (coronary artery disease) S/P CABG x 4 Social History Household Members: None Housing: House Alcohol intake: never Patient Tobacco Use Status: Former Tobacco user Years Smoked: 40 e-Cigarette/Vaping Use: Never Used Second Hand Smoke Exposure: No service: No Current occupational status: retired Cognitive needs: No Hearing needs: No Vision needs: Yes (glasses) Physical Exam Vital Signs: Last Vital Signs Pulse 64 09/25/24 07:56 BP 120/82 09/25/24 07:56 Pulse Ox 98 09/25/24 07:56 Oxygen Delivery Method Room Air 09/25/24 07:56 BMI result Body Mass Index 21.8 Const General: cooperative, healthy appearing, comfortable and no acute distress Nutritional Appearance: average body habitus Orientation/consciousness: oriented to person Eyes Pupils: Equal, round and reactive pupils present Neuro General: oriented to person, No gait normal, tone normal and moves all extremities Cranial nerves: Yes Facial sensation intact/muscles of mastication intact, Yes Equal, round and reactive pupils present, Yes Bilaterally intact EOM present, Yes Nystagmus not present, Yes Normal facial strength present, Yes Midline tongue present, Yes Symmetric palate elevation present and Yes Ability to bilaterally elevate shoulders present Cognition (Neuro): abnormal cognition Gait exam (Neuro): Normal gait present Motor exam (neuro): 5/5 motor strength present throughout and Normal motor muscle tone present throughout Coordination: uxvkue-wl-eaan test normal Psych Appearance: grossly normal Assessment & Plan Assessment & Plan (1) Dementia: Comment: mild to moderate , Alzheimers vs mixed dementia MOCA 02/06 Code(s): F03.90 - Unspecified dementia, unspecified severity, without behavioral disturbance, psychotic disturbance, mood disturbance, and anxiety Category: Medical Qualifiers: Dementia type: Alzheimer's Alzheimer's disease onset: late onset Dementia severity: moderate Dementia behavioral or psychological symptom: without behavioral, psychotic, or mood disturbance or anxiety Qualified Code(s): G30.1 - Alzheimer's disease with late onset; F02.B0 - Dementia in other diseases classified elsewhere, moderate, without behavioral disturbance, psychotic disturbance, mood disturbance, and anxiety Plan Memantine XR 28 mg F/u [facility] for senior services- Meals on wheels, giving medications, light house keeping, meal prep etc. F/u cardiology Needs life alert . Coding Level of Care Code Est Pt Level 4 (56477) Diagnoses Moderate late onset Alzheimer's dementia without behavioral disturbance, psychotic disturbance, mood disturbance, or anxiety G30.1; F02.B0 Dementia type: Alzheimer's Alzheimer's disease onset: late onset Dementia severity: moderate Dementia behavioral or psychological symptom: without behavioral, psychotic, or mood disturbance or anxiety
[2024-09-25 07:56] VITALS: BP 120/82; PULSE 64; O2SAT 98; BMI 21.8
== END 2024-09-25 08:28 | disposition home or self-care (01) ==
LOC: HO.HSMS 07:55
PROVIDERS: PCP Physician Assistant; Visit Provider Psychiatry & Neurology Neurology
DX: G30.1 Alzheimer's disease with late onset (principal); F02.B0 Dementia in other diseases classified elsewhere, moderate, without behavioral disturbance, psychotic disturbance, mood disturbance, and anxiety
CPT/HCPCS: 99214

== ENCOUNTER → 2024-09-25 07:54 | Outpatient (BNVA) | payer MEDICARE, SELFPAY | PROVIDERS: PCP Physician Assistant; Visit Provider Psychiatry & Neurology Neurology | DX: G30.1 Alzheimer's disease with late onset (principal); F02.B0 Dementia in other diseases classified elsewhere, moderate, without behavioral disturbance, psychotic disturbance, mood disturbance, and anxiety | CPT/HCPCS: 99212 ==

== ENCOUNTER → 2024-10-05 23:59 | Outpatient (BNV) | payer MEDICARE, SELFPAY ==
--- NOTE | 2024-10-08 13:17 | A.OFFVIS_ITS ---
Intake Visit Reasons: Remote device check- [employer] Allergies No Known Allergies (No Known Allergies*) Allergy (Verified 09/25/24 08:01) [facility] Medical History Dementia PAF (paroxysmal atrial fibrillation) COPD (chronic obstructive pulmonary disease) Surgical History History of cataract extraction Status post aorto-coronary artery bypass graft Status post ascending aortic aneurysm repair Status post aortic valve replacement with bioprosthetic valve History of heart surgery Family History Father Myocardial infarction Mother No problems noted. Brother CAD (coronary artery disease) S/P CABG x 4 Social History Household Members: None Housing: House Alcohol intake: never Patient Tobacco Use Status: Former Tobacco user Years Smoked: 40 e-Cigarette/Vaping Use: Never Used Second Hand Smoke Exposure: No service: No Current occupational status: retired Cognitive needs: No Hearing needs: No Vision needs: Yes (glasses) Office Procedures Cardiac Device Check Cardiac Device Check Details: Date of service- 10/05/2024 ; Battery life 55%; normal lead parameters; AP 22%; REGISTERED RADIOLOGIC TECHNOLOGIST 3%; no significant arrhythmias. Overall normal device function. [id number] Cardiac Device Interrogation, pacemaker Procedure code (CPT) selection complete Assessment & Plan Assessment & Plan (1) Pacemaker: Code(s): Z95.0 - Presence of cardiac pacemaker Category: Medical (2) PAF (paroxysmal atrial fibrillation): Code(s): I48.0 - Paroxysmal atrial fibrillation Category: Medical (3) Status post aorto-coronary artery bypass graft: Code(s): Z95.1 - Presence of aortocoronary bypass graft Category: Surgical (4) Status post aortic valve replacement with bioprosthetic valve: Comment: Aortic valve replaced in 2018 Code(s): Z95.3 - Presence of xenogenic heart valve Category: Surgical Plan x Coding Level of Care Code Procedure Only Diagnoses Pacemaker Z95.0 PAF (paroxysmal atrial fibrillation) I48.0 Status post aorto-coronary artery bypass graft Z95.1 Status post aortic valve replacement with bioprosthetic valve Z95.3 CPT Codes Cardiac Device Check - Cardiac Device 12: [id number] Cardiac Device Interrogation, pacemaker ([id number])
== END ==
PROVIDERS: PCP Physician Assistant; Visit Provider Internal Medicine
DX: I48.0 Paroxysmal atrial fibrillation (principal); Z95.0 Presence of cardiac pacemaker; Z95.1 Presence of aortocoronary bypass graft; Z95.3 Presence of xenogenic heart valve
CPT/HCPCS: 93294

== ENCOUNTER → 2025-01-09 09:23 | Outpatient (BNV) | payer MEDICARE, SELFPAY | PROVIDERS: PCP Physician Assistant; Visit Provider Internal Medicine | DX: I50.9 Heart failure, unspecified (principal); Z95.0 Presence of cardiac pacemaker | CPT/HCPCS: 93297 ==

== ENCOUNTER → 2025-01-14 14:36 | Outpatient (BNV) | payer MEDICARE, SELFPAY | PROVIDERS: PCP Physician Assistant; Visit Provider Internal Medicine | DX: I48.0 Paroxysmal atrial fibrillation (principal); Z95.0 Presence of cardiac pacemaker | CPT/HCPCS: 93294 ==

== ENCOUNTER → 2025-01-18 14:45 | Outpatient (BNV) | payer MEDICARE, SELFPAY | PROVIDERS: Emergency Provider Emergency Medicine; PCP Physician Assistant; Visit Provider Psychiatry & Neurology Psychiatry | DX: F03.90 Unspecified dementia, unspecified severity, without behavioral disturbance, psychotic disturbance, mood disturbance, and anxiety (principal) | CPT/HCPCS: 99282 ==

== ENCOUNTER → 2025-01-18 14:59 | Outpatient (BNV) | payer MEDICARE, SELFPAY | PROVIDERS: Emergency Provider Emergency Medicine; Visit Provider Radiology Diagnostic Radiology | DX: S09.90XA Unspecified injury of head, initial encounter (principal); R90.82 White matter disease, unspecified; M47.812 Spondylosis without myelopathy or radiculopathy, cervical region; Z04.3 Encounter for examination and observation following other accident | CPT/HCPCS: 70450; 72125 ==

== ENCOUNTER 2025-01-30 21:19 | Outpatient (BNV) | payer MEDICARE, SELFPAY | END 2025-02-03 13:57 | PROVIDERS: Admitting Provider Internal Medicine; Emergency Provider Emergency Medicine; PCP Physician Assistant; Visit Provider Radiology Diagnostic Radiology | DX: R46.4 Slowness and poor responsiveness (principal) | CPT/HCPCS: 70450; 71045; 71275; 74177 ==

== ENCOUNTER 2025-01-30 21:19 | Outpatient (BNV) | payer MEDICARE, SELFPAY | END 2025-02-05 07:00 | PROVIDERS: Admitting Provider Internal Medicine; Emergency Provider Emergency Medicine; PCP Physician Assistant; Visit Provider Internal Medicine | DX: I51.89 Other ill-defined heart diseases (principal); Z95.2 Presence of prosthetic heart valve | CPT/HCPCS: 93010; 93306 ==

== ENCOUNTER 2025-01-30 21:19 | Outpatient (BNV) | payer MEDICARE, SELFPAY | END 2025-02-03 15:13 | PROVIDERS: Admitting Provider Internal Medicine; Emergency Provider Emergency Medicine; PCP Physician Assistant; Visit Provider Internal Medicine Cardiovascular Disease | DX: I49.8 Other specified cardiac arrhythmias (principal) | CPT/HCPCS: 93010 ==

== ENCOUNTER → 2025-01-30 21:19 | Outpatient (BNV) | payer MEDICARE, SELFPAY | PROVIDERS: Admitting Provider Internal Medicine; Emergency Provider Emergency Medicine; PCP Physician Assistant; Visit Provider Internal Medicine Critical Care Medicine | DX: R41.3 Other amnesia (principal); I46.9 Cardiac arrest, cause unspecified; Z95.1 Presence of aortocoronary bypass graft | CPT/HCPCS: 99223; 99233 ==

== ENCOUNTER → 2025-01-30 21:19 | Outpatient (BNV) | payer MEDICARE, SELFPAY | PROVIDERS: Admitting Provider Internal Medicine; Emergency Provider Emergency Medicine; PCP Physician Assistant; Visit Provider Internal Medicine | DX: Z95.3 Presence of xenogenic heart valve (principal); Z95.1 Presence of aortocoronary bypass graft; Z98.890 Other specified postprocedural states; Z86.79 Personal history of other diseases of the circulatory system; R41.89 Other symptoms and signs involving cognitive functions and awareness; G30.1 Alzheimer's disease with late onset; F02.B0 Dementia in other diseases classified elsewhere, moderate, without behavioral disturbance, psychotic disturbance, mood disturbance, and anxiety; B34.8 Other viral infections of unspecified site | CPT/HCPCS: 99223; 99233 ==

== ENCOUNTER → 2025-01-30 21:19 | Outpatient (BNV) | payer MEDICARE, SELFPAY | PROVIDERS: Admitting Provider Internal Medicine; Emergency Provider Emergency Medicine; PCP Physician Assistant; Visit Provider Internal Medicine | DX: F02.B0 Dementia in other diseases classified elsewhere, moderate, without behavioral disturbance, psychotic disturbance, mood disturbance, and anxiety (principal) | CPT/HCPCS: 99222; 99231; 99232; 99499 ==